=== PATIENT | female | born 1970 | race Caucasian/White ===

== ENCOUNTER → 2016-03-24 | Outpatient (CLI) | payer MEDICARE, MEDICAID | LOC: RAD 11:37 | PROVIDERS: ATTEND Nurse Practitioner Family | DX: S99.921A Unspecified injury of right foot, initial encounter (principal); X58.XXXA Exposure to other specified factors, initial encounter; Y93.9 Activity, unspecified; Y92.9 Unspecified place or not applicable ==

== ENCOUNTER → 2016-04-04 | Outpatient (CLI) | payer MEDICARE, MEDICAID ==
--- NOTE | 2016-04-04 15:52 | ST Modified Barium Swallow ---
Recommendation - Recommendations Recommendations: 1) DIET: recommend continue current diet. No straws, limit large sequential swallows from cup. 2) Aspiration precautions; due to aspiration of thin with sequential straw sips and with large sequential cup swallows. SUMMARY: Pt presents with mild pharyngeal dysphagia characterized by aspiration of large sequential swallows of thin by straw and cup. No penetration or aspiration observed on small sips of thin by cup. No residuals observed in pharyngeal cavity on any consistency. Pt educated on no straws and limiting large sequential swallows of thin. Medical Diagnoses - Medical Diagnoses Medical Diagnosis Description & ICD-10 Code(s): dysphagia, tardive dyskinesia Other Medical Diagnoses/Co-Morbidities: tardive dyskinesia, reflux, depression, schizoaffective disorder - ICD-10 Tx Diagnosis Coding (1) Dysphagia, pharyngeal phase ICD-10 Code(s): R13.13 - DYSPHAGIA, PHARYNGEAL PHASE ST Modified Barium Swallow - General Date: 04/04/16 Referring Physician: Faye Morel NP Risks/Precautions: None Date of Onset: 04/01/15 Reason for Referral: dysphagia - History History obtained from: Patient -: Medical - Pt reports she "forgets how to swallow" and she only eats soft foods due to dentures. Pt reports globus sensation in upper neck. Pt states moments of difficulty swallowing come and go and at times of difficulty swallowing she endorses "bad reflux." Pt denies taking any reflux medications. Pt reports when swallowing is difficult she will have coughing and choking on solids and liquids. Pt denies history of PNA or bronchitis. PMHx:tardive dyskinesia, reflux, depression, schizoaffective disorder, spontaneous pneumothorax with lung surgery. Medications: trileptal, pt unable to recall any other medications. Allergies: haloperidol, benztropine, codeine, symbalta, zyprexa - Functional Status Prior Functional Status: INDEPENDENT: feeding Current Functional Limitations: feeding - Subjective Patient/caregiver goal(s): safe swallow, r/o aspiration Cognitive-Linguistic Function: Functional Speech Intelligibility: WNL Current Nutritional Means: PO Current PO diet: Soft - due to dentures Current symptoms: Coughing, c/o Globus sensation - upper neck Pain: 1/5 - constipation - Objective Assessment: Upright, Left Lateral - Food Trials Used Food trials used: Thin liquids, Pureed, Soft solids The patient: Was Able to Self Feed - Oral-Motor Skills Dentition: Dentures-Upper, Dentures-Lower Velo-pharyngeal function: Unremarkable Laryngeal Function: Volitional Cough, Volitional Swallow - Assessment Oral prep: Normal Labial closure: Adequate Leakage: None Mastication: Adequate Lingual Movement: Normal Oral stage: Normal for this Procedure - Pharyngeal Stage Initiation of Pharyngeal Stage Reflex: Normal Decreased laryngeal elevation: No Reduced Velopharyngeal Closure: no Reduced pressure generation: No reduced tongue-based retraction: No Pre-swallow pooling in valleculae: None Pre-Swallow pooling in pyriforms: None Reduced Thyro-Hyoid approximation: Yes - on large sequential sips by straw and cup; appropriate approximation on all other pO trials Reduced epiglottic excursion: No Reduced pharyngeal peristalsis/contraction: No Post-swallow residulas vallecular: None Post-Swallow residuals in pyriforms: None - Fall Risk Assessment Medications/Conditions that increase fall risks include: Antidepressants, sedatives, anti-arrhythmic, diuretic, benzodiazipenes, neuroleptics. BP regulation problems, cardiac problems, balance or gait deficits, neurological problems. Is patient considered at risk for falls: no Fall Risk Actions Taken: No action needed - Behavioral Observations During evaluation process patient: was pleasant, was cooperative, able to answer questions, provided medical history - Treatment / Educational Needs: Treatment/Education Needs: Treatment consisted of patient education on the role of the Speech Pathologist. Patient's plan of care and golas were communicated as well as scheduling and attendance policies. Recommendations for initial home program were shared. Patient demonstrated understanding and verbalized agreement. Initial home program recommendations: pt provided with verbal and written education on aspiration PNA and recommendations from study. - Impression/Summary Tracheal Aspiration: yes - on large sequential sips of thin by straw and cup, during swallow Patient presents with: Pharyngeal stage dysph. - mild Risk of Aspiration: Mild - Recommendations NPO: no Solid diet recommendations: Mechanical Soft Liquid Diet Modification: Thin Strict aspiration precautions: Yes Pt/Family education and followup with MD: Yes Dysphagia therapy with PATHOLOGY LABORATORY AIDE: no Recommended techniques: Fully Upright During Meal, Small Bites and Sips Supervision: Independent Information, Precautions and Recommendations: Patient (Written), Patient (Verbal ) - Time Total Time: 25 - Plan of Care Strategies to optimize patient understanding include:: ongoing assessment of educational needs, implementation of educational strategies, and re-education. - - -: Thank you for the opportunity to work with this patient and his/her family. Should you have any questions about this patient's plan or progress, I can be reached at [phone]. Charge G Code? - - -: Yes ST Reyes Impairment Category - Rationale Based On Rationale Based On: Clin Find., Obj Measures - Swallowing Current G8996: CJ 20-39% Impaired Goal G8997: CJ 20-39% Impaired Discharge G8998: CJ 20-39% Impaired
== END ==
LOC: RAD 08:11
PROVIDERS: ATTEND Nurse Practitioner Family
DX: R13.13 Dysphagia, pharyngeal phase (principal); K21.9 Gastro-esophageal reflux disease without esophagitis; G24.01 Drug induced subacute dyskinesia
CPT/HCPCS: 74230; 92611; G8996; G8997; G8998

== ENCOUNTER 2016-06-16 20:20 | Emergency (ER) | payer MEDICARE, MEDICAID ==
--- NOTE | 2016-06-16 20:47 | ER Document Report ---
ED General - General Stated Complaint: ALTERED MENTAL STATUS Cannot obtain history due to: Intoxicated, Altered mental status Notes: Patient is a 45-year-old female who presents by EMS after taking 25 mg of clonazepam in a suicide attempt. She denies any coingestions. No additional history is able to be provided as patient is somnolent and intoxicated on benzodiazepines. She apparently has a history of the same in the past. TRAVEL OUTSIDE OF THE [place] IN LAST 30 DAYS: No - Related Data Allergies/Adverse Reactions: haloperidol [From Haldol] Allergy (Severe, Verified 01/10/16 07:35) Anaphylaxis haloperidol lactate [From Haldol] Allergy (Severe, Verified 01/10/16 07:35) Anaphylaxis benztropine [From Cogentin] Allergy (Unknown, Verified 01/10/16 07:35) codeine [Codeine] Adverse Reaction (Intermediate, Verified 01/10/16 07:35) DIZZY, PASSES OUT, GETS NAUSEATED duloxetine HCl [From Cymbalta] Adverse Reaction (Intermediate, Verified 07:35) URINE RETENTION olanzapine [From Zyprexa] Adverse Reaction (Mild, Verified 01/10/16 07:35) INCREASED HEARTRATE Past Medical History - General Information source: Law Enforcement Cannot obtain history due to: Intoxicated, Altered mental status - Social History Smoking Status: Unknown if Ever Smoked Family History: Reviewed & Not Pertinent - Past Medical History Cardiac Medical History: Reports: Hx Hypertension Denies: Hx Coronary Artery Disease, Hx Heart Attack Pulmonary Medical History: Denies: Hx Asthma, Hx Bronchitis, Hx COPD, Hx Pneumonia Neurological Medical History: Reports: Hx Seizures - last one 7 yrs ago due to meds. Denies: Hx Cerebrovascular Accident GI Medical History: Denies: Hx Hepatitis, Hx Hiatal Hernia, Hx Ulcer Musculoskeltal Medical History: Denies Hx Arthritis Psychiatric Medical History: Reports: Hx Anxiety, Hx Depression, Hx Schizoaffective Disorder Infectious Medical History: Denies: Hx Hepatitis Past Surgical History: Reports: Hx Gynecologic Surgery, Hx Orthopedic Surgery. Denies: Hx Hysterectomy, Hx Mastectomy, Hx Open Heart Surgery, Hx Pacemaker - Immunizations Immunizations up to date: Yes Hx Diphtheria, Pertussis, Tetanus Vaccination: Yes Review of Systems - Review of Systems -: Yes ROS unobtainable due to patient's medical condition Physical Exam - Vital signs Vitals: Temp Pulse Resp BP Pulse Ox 98.0 F 62 14 104/71 100 06/16/16 20:30 06/16/16 20:30 06/16/16 20:30 06/16/16 20:30 06/16/16 20:30 Interpretation: Normal Notes: PHYSICAL EXAMINATION: GENERAL: Somewhat somnolent but does awake to loud voice HEAD: Atraumatic, normocephalic. EYES: Pupils equal round and reactive to light, extraocular movements intact, sclera anicteric, conjunctiva are normal. ENT: nares patent, oropharynx clear without exudates. Moderately dry mucous membranes. NECK: Normal range of motion, supple without lymphadenopathy LUNGS: Breath sounds clear to auscultation bilaterally and equal. No wheezes rales or rhonchi. HEART: Regular rate and rhythm without murmurs ABDOMEN: Soft, nontender, normoactive bowel sounds. No guarding, no rebound. No masses appreciated. EXTREMITIES: Normal range of motion, no pitting or edema. No cyanosis. NEUROLOGICAL: No focal neurological deficits. Moves all extremities spontaneously and on command. PSYCH: Somnolent SKIN: Warm, Dry, normal turgor, no rashes or lesions noted. Course - Re-evaluation Re-evalutation: 06/16/16 20:46 Patient presents after ingesting a total of 25 mg of clonazepam per her report prior to arrival in a suicide attempt. She arrives somewhat somnolent but her respiratory rate and remaining vitals are otherwise within normal limits. No additional physical finding exams other than somnolence although she does wake up and answer questions after vigorous physical stimulation and she will be observed on school lunch monitor, psychiatric screening laboratories will be sent and she was placed on IVC. 06/17/16 03:46 Agent has had improving mental status or her duration here in the emergency room. She has not had any apnea or respiratory depression. Screening laboratories are unremarkable. EKG normal. She is medically clear at this time for evaluation by psychiatry in the morning. - Vital Signs Vital signs: Temp Pulse Resp BP Pulse Ox 98.0 F 62 14 104/71 100 06/16/16 20:30 06/16/16 20:30 06/16/16 20:30 06/16/16 20:30 06/16/16 20:30 - Laboratory Result Diagrams: 06/16/16 20:30 06/16/16 20:30 Laboratory results interpreted by me: 06/16/16 06/17/16 20:30 00:31 AST 40 H ALT 96 H Urine Ketones TRACE H Salicylates < 1.0 L Acetaminophen < 10 L - EKG Interpretation by Me Additional EKG results interpreted by me: 06/17/16 03:46 Normal sinus rhythm. Rate 74. No ST elevations or depressions. QTC is 440 Discharge - Discharge Clinical Impression: Suicide attempt Benzodiazepine overdose Qualifiers: Encounter type: initial encounter Injury intent: intentional self-harm Qualified Code(s): T42.4X2A - Poisoning by benzodiazepines, intentional self- harm, initial encounter Condition: Fair Disposition: PSYCH HOSP/UNIT
[2016-06-16 21:54] LABS: ABSOLUTE EOSINOPHILS # (AUTO) 0.1 10^3/uL (0.0-0.6); ABSOLUTE LYMPHOCYTES (AUTO) 2.3 10^3/uL (0.5-4.7); ABSOLUTE MONOCYTES (AUTO) 0.6 10^3/uL (0.1-1.4); ABSOLUTE NEUT (AUTO) 7.2 10^3/uL (1.7-8.2); BASOPHILS % (AUTO) 0.2 % (0-2); EOSINOPHILS % (AUTO) 0.8 % (0-6); HEMATOCRIT 39.6 % (36.0-47.0); HEMOGLOBIN 13.4 g/dL (12.0-15.5); HGB HCT DIFFERENCE 0.6; MEAN CORPUSCULAR HEMOGLOBIN 29.2 pg (27.0-33.4); MEAN CORPUSCULAR HGB CONC 33.9 g/dL (32.0-36.0); MEAN CORPUSCULAR VOLUME 86 fl (80-97); MONOCYTES % (AUTO) 5.7 % (3-13); RED CELL DISTRIBUTION WIDTH 13.6 % (11.5-14.0); SEGMENTED NEUTROPHILS % (AUTO) 70.3 % (42-78); WHITE BLOOD COUNT 10.2 10^3/uL (4.0-10.5)
[2016-06-16 22:23] LABS: ALANINE AMINOTRANSFERASE 96 U/L (9-52); ALBUMIN 4.3 g/dL (3.5-5.0); ALKALINE PHOSPHATASE 80 U/L (38-126); ANION GAP 12 (5-19); ASPARTATE AMINO TRANSFERASE 40 U/L (14-36); BILIRUBIN,DIRECT 0.3 mg/dL (0.0-0.4); BILIRUBIN,TOTAL 0.7 mg/dL (0.2-1.3); BLOOD UREA NITROGEN 8 mg/dL (7-20); CARBON DIOXIDE 27 mmol/L (22-30); CHLORIDE 104 mmol/L (98-107); CREATININE RESULT 0.75 mg/dL (0.52-1.25); GLUCOSE 101 mg/dL (75-110); POTASSIUM 4.6 mmol/L (3.6-5.0); SODIUM 142.7 mmol/L (137-145); TOTAL PROTEIN 7.4 g/dL (6.3-8.2)
[2016-06-16 22:24] LABS: ALCOHOL < 10 mg/dL (NONE DETECTED)
[2016-06-17 00:51] LABS: APPEARANCE,URINE SLIGHTLY-CLOUDY; BILIRUBIN,URINE NEGATIVE (NEGATIVE); GLUCOSE, URINE NEGATIVE (NEGATIVE); KETONES,URINE TRACE mg/dL (NEGATIVE); LEUKOCYTE ESTERASE,URINE NEGATIVE (NEGATIVE); NITRITE,URINE NEGATIVE (NEGATIVE); PROTEIN,URINE NEGATIVE (NEGATIVE); URINE SPECIFIC GRAVITY 1.005; UROBILINOGEN,URINE NEGATIVE mg/dL (<2.0)
[2016-06-17 01:04] LABS: URINE BARBITURATES SCREEN NEGATIVE; URINE METHADONE SCREEN NEGATIVE; URINE OPIATES LOW NEGATIVE; URINE PHENCYCLIDINE SCREEN NEGATIVE
--- NOTE | 2016-06-17 06:08 | EKG REPORT ---
SEVERITY:- BORDERLINE ECG - SINUS RHYTHM LVH BY VOLTAGE : Confirmed by: Sea Velez 17-Jun-2016 06:07:39
--- NOTE | 2016-06-17 09:19 | ER Document Report ---
Doctor's Note Notes: 06/17/16 09:18 Patient's ER notes were reviewed. Nursing staff states no overnight events. Patient is currently resting currently. Lab work and vital signs have been reviewed. Patient stable for disposition
--- NOTE | 2016-06-17 17:35 | PSYCHOLOGICAL NOTE ---
Psych Note - Psych Note Psych Note: Patient presented to [facility] ED by EMS after taking 25 mg of clonazepam in a suicide attempt. She denies any coingestions. No additional history is able to be provided as patient is somnolent and intoxicated on benzodiazepines. She apparently has a history of the same in the past. Patient states that she took a bottle of Klonopin. She disclosed that she has been for 22 years however has recently started having feelings for someone else. Yesterday she told that person about her feelings and "while they were nice about it they pretty much said no way." Patient disclosed that she has a diagnosis of it so effective disorder. She received services through [facility]. She continued disclosed that she has been inpatient "too many times remember." Last time occurring in February to [facility]. When asked if the patient still has suicidal ideation patient responds "I don't know how to cope. " Patient confirms she receives medication management and therapeutic services but states she has never been taught coping skills. Patient again was asked if she still has suicidal thoughts patient stated "I don't know, I wanted to but knew I wasn't taking enough to do." Patient is semi-alert and orientated to person place time and circumstance. Mood is dysphoric with flat affect. Clinician notes patient is demonstrating delayed psychomotor and responses in conversational speech. Patient endorses suicidal ideation, denies homicidal ideation. Patient denies any current auditory or visual hallucinations however states she's had been in the past; no delusions are noted. Thought process is currently affected resulting in noticeable delay in responses however is organized and linear. Conversational speech is low in delayed. Eye contact was poor. Intellectual abilities appear to be within average range. Attention and concentration are fair. Insight, judgment, impulse control are poor. 295.70 (F25.0) Schizoaffective disorder per history provided by patient Impression\\plan:Patient is considered psychiatrically cleared for discharge. Patient endorses suicidal attempt however there are no medical evidence to back this claim. Patient has an established mental health provider through [facility]. Patient has an appointment on the for therapeutic services and on the for a medication check. Patient is recommended to follow through with these appointments. Patient does not meet IVC criteria per [place] GS 122C. Dr. Kinney was consulted on a care management of this patient attending physician is in agreement with recommendations and disposition.
--- NOTE | 2016-06-17 17:41 | ER Document Report ---
ED Psych Disorder / Suicide - General TRAVEL OUTSIDE OF THE [place] IN LAST 30 DAYS: No <KAYLIE ACOSTA - Last Filed: 06/17/16 17:35> <MARKY GALAN - Last Filed: 06/17/16 18:36> - General Chief Complaint: Possible Overdose Stated Complaint: ALTERED MENTAL STATUS - [facility] Notes: Patient is considered psychiatrically cleared for discharge. Patient endorses suicidal attempt however there are no medical evidence to back this claim. Patient has an established mental health provider through [facility]. Patient has an appointment on the for therapeutic services and on the for a medication check. Patient is recommended to follow through with these appointments. Patient does not meet IVC criteria per [facility] 122C. Dr. Kinney was consulted on a care management of this patient attending physician is in agreement with recommendations and disposition. (KAYLIE ACOSTA) - Related Data Allergies/Adverse Reactions: haloperidol [From Haldol] Allergy (Severe, Verified 01/10/16 07:35) Anaphylaxis haloperidol lactate [From Haldol] Allergy (Severe, Verified 01/10/16 07:35) Anaphylaxis benztropine [From Cogentin] Allergy (Unknown, Verified 01/10/16 07:35) codeine [Codeine] Adverse Reaction (Intermediate, Verified 01/10/16 07:35) DIZZY, PASSES OUT, GETS NAUSEATED duloxetine HCl [From Cymbalta] Adverse Reaction (Intermediate, Verified 07:35) URINE RETENTION olanzapine [From Zyprexa] Adverse Reaction (Mild, Verified 01/10/16 07:35) INCREASED HEARTRATE Home Medications: Current Home Medications Atenolol [Tenormin] 25 mg PO BID 06/17/16 [History] Clonazepam [Klonopin] 0.5 mg PO BID 06/17/16 [History] Clonazepam [Klonopin] 1 mg PO QHS 06/17/16 [History] Dextroamphetamine/Amphetamine [Adderall 30 mg Tablet] 30 mg PO BID 06/17/16 [ History] Fluoxetine HCl [Prozac 20 mg Capsule] 20 mg PO QAM 06/17/16 [History] Hydroxyzine Pamoate [Vistaril 25 mg Capsule] 25 mg PO QHS 06/17/16 [History] Iloperidone [Fanapt] 4 mg PO DAILY 06/17/16 [History] Naproxen 500 mg PO Q12 06/17/16 [History] Oxcarbazepine [Trileptal] 600 mg PO BID 06/17/16 [History] Ramipril [Altace 2.5 mg Capsule] 2.5 mg PO DAILY 06/17/16 [History] Past Medical History - General Information source: Law Enforcement - Social History Smoking Status: Unknown if Ever Smoked Frequency of alcohol use: None Drug Abuse: None Family History: Reviewed & Not Pertinent - Past Medical History Cardiac Medical History: Reports: Hx Hypertension Denies: Hx Coronary Artery Disease, Hx Heart Attack Pulmonary Medical History: Denies: Hx Asthma, Hx Bronchitis, Hx COPD, Hx Pneumonia Neurological Medical History: Reports: Hx Seizures - last one 7 yrs ago due to meds. Denies: Hx Cerebrovascular Accident GI Medical History: Denies: Hx Hepatitis, Hx Hiatal Hernia, Hx Ulcer Musculoskeltal Medical History: Denies Hx Arthritis Psychiatric Medical History: Reports: Hx Anxiety, Hx Depression, Hx Schizoaffective Disorder Infectious Medical History: Denies: Hx Hepatitis Past Surgical History: Reports: Hx Gynecologic Surgery, Hx Orthopedic Surgery. Denies: Hx Hysterectomy, Hx Mastectomy, Hx Open Heart Surgery, Hx Pacemaker - Immunizations Immunizations up to date: Yes Hx Diphtheria, Pertussis, Tetanus Vaccination: Yes <KAYLIE ACOSTA - Last Filed: 06/17/16 17:35> Course - Laboratory Result Diagrams: 06/16/16 20:30 06/16/16 20:30 <KAYLIE ACOSTA - Last Filed: 06/17/16 17:35> - Laboratory Result Diagrams: 06/16/16 20:30 06/16/16 20:30 <MARKY GALAN - Last Filed: 06/17/16 18:36> - Re-evaluation Re-evalutation: 06/17/16 18:36 Agree with assessment and plan of ourr mental health team. Patient can be discharged home. (MARKY GALAN) - Vital Signs Vital signs: Temp Pulse Resp BP Pulse Ox 97.8 F 60 16 117/75 95 06/17/16 15:18 06/17/16 15:18 06/17/16 15:18 06/17/16 15:18 06/17/16 15:18 - Laboratory Laboratory results interpreted by me: 06/16/16 06/17/16 20:30 00:31 AST 40 H ALT 96 H Urine Ketones TRACE H Salicylates < 1.0 L Acetaminophen < 10 L Discharge <KAYLIE ACOSTA - Last Filed: 06/17/16 17:35> <MARKY GALAN - Last Filed: 06/17/16 18:36> - Discharge Clinical Impression: Benzodiazepine overdose Qualifiers: Encounter type: initial encounter Injury intent: intentional self-harm Qualified Code(s): T42.4X2A - Poisoning by benzodiazepines, intentional self- harm, initial encounter Suicide gesture Qualifiers: Encounter type: subsequent encounter Qualified Code(s): X83.8XXD - Intentional self-harm by other specified means, subsequent encounter Condition: Good Disposition: HOME, SELF-CARE Additional Instructions: DEPRESSION: Your evaluation reveals that you have mental depression. While symptoms may be vague, they often include disturbance of sleep, fatigue, loss of appetite , and general loss of interest in life. While depression may be a side effect of drugs, or a reaction to a major change in your life, many cases have no known cause. If depression is acute, and related to a major loss in your life, you can expect it to clear completely with time. If you have been depressed a long time , are prone to repeated bouts of depression or low mood, or have been thinking of suicide, get help. Depression can be treated with anti-depressant medication and counselling. Long-term depression will often take a few weeks to clear, even with appropriate medication. Follow-up care is important. SUICIDAL IDEATION: Suicidal ideation is a common medical term for thoughts about suicide, which may be as detailed as a formulated plan, without the suicidal act itself. Although most people who undergo suicidal ideation do not commit suicide, some go on to make suicide attempts. The range of suicidal ideation varies greatly from fleeting to detailed planning, role playing, and unsuccessful attempts. While thoughts about suicide are common, most people do not carry out serious actions to commit suicide. Based upon your evaluation and discussion with you, we do not believe you are currently at risk to act upon your thoughts of suicide. You have agreed to return to the Emergency Department, at any time , if you feel inclined to act upon your suicidal thoughts. FOLLOW-UP CARE: Patient has an established mental health provider through [facility]. Patient has an appointment on the for therapeutic services and on the for a medication check. Patient is recommended to follow through with these appointments. If you experience worsening or a significant change in your symptoms, notify the physician immediately or return to the Emergency Department at any time for re-evaluation. Referrals: DINESH MENESES MD [Primary Care Provider] - Follow up as needed Danny Gupta [Outside] - Follow up as needed
[2016-06-17 18:50] VITALS: BP 105/58
== END 2016-06-17 19:10 | disposition home or self-care (01) ==
LOC: ER 20:20
DX: T42.4X2A Poisoning by benzodiazepines, intentional self-harm, initial encounter (principal); R41.82 Altered mental status, unspecified; F25.0 Schizoaffective disorder, bipolar type; I10 Essential (primary) hypertension; Z88.6 Allergy status to analgesic agent
CPT/HCPCS: 36415; 80053; 80307; 81001; 85025; 93005; 93010; 99285

== ENCOUNTER 2016-06-17 23:09 | Emergency (ER) | payer MEDICARE, MEDICAID ==
[2016-06-17 23:35] LABS: ABSOLUTE EOSINOPHILS # (AUTO) 0.1 10^3/uL (0.0-0.6); ABSOLUTE LYMPHOCYTES (AUTO) 2.7 10^3/uL (0.5-4.7); ABSOLUTE MONOCYTES (AUTO) 0.6 10^3/uL (0.1-1.4); ABSOLUTE NEUT (AUTO) 7.3 10^3/uL (1.7-8.2); BASOPHILS % (AUTO) 0.1 % (0-2); EOSINOPHILS % (AUTO) 1.3 % (0-6); HEMATOCRIT 40.7 % (36.0-47.0); HEMOGLOBIN 13.8 g/dL (12.0-15.5); HGB HCT DIFFERENCE 0.7; LYMPHOCYTES % (AUTO) 25.2 % (13-45); MEAN CORPUSCULAR HEMOGLOBIN 29.1 pg (27.0-33.4); MEAN CORPUSCULAR HGB CONC 33.9 g/dL (32.0-36.0); MEAN CORPUSCULAR VOLUME 86 fl (80-97); MONOCYTES % (AUTO) 5.8 % (3-13); RED BLOOD COUNT 4.75 10^6/uL (3.72-5.28); RED CELL DISTRIBUTION WIDTH 13.4 % (11.5-14.0); SEGMENTED NEUTROPHILS % (AUTO) 67.6 % (42-78); WHITE BLOOD COUNT 10.8 10^3/uL (4.0-10.5)
[2016-06-17 23:50] LABS: ALANINE AMINOTRANSFERASE 87 U/L (9-52); ALBUMIN 4.3 g/dL (3.5-5.0); ALKALINE PHOSPHATASE 89 U/L (38-126); ANION GAP 11 (5-19); ASPARTATE AMINO TRANSFERASE 37 U/L (14-36); BILIRUBIN,DIRECT 0.3 mg/dL (0.0-0.4); BILIRUBIN,TOTAL 0.6 mg/dL (0.2-1.3); BLOOD UREA NITROGEN 14 mg/dL (7-20); CALCIUM 9.8 mg/dL (8.4-10.2); CARBON DIOXIDE 26 mmol/L (22-30); CHLORIDE 106 mmol/L (98-107); CREATININE RESULT 0.81 mg/dL (0.52-1.25); GLUCOSE 89 mg/dL (75-110); POTASSIUM 4.5 mmol/L (3.6-5.0); SODIUM 143.4 mmol/L (137-145); TOTAL PROTEIN 7.3 g/dL (6.3-8.2)
[2016-06-17 23:55] LABS: ALCOHOL < 10 mg/dL (NONE DETECTED)
--- NOTE | 2016-06-18 02:23 | ER Document Report ---
ED General - General Chief Complaint: Psych Problem Stated Complaint: POSSIBLE OVERDOSE Cannot obtain history due to: Altered mental status Notes: Patient is a 45-year-old female who again presents today with family concerns that she was not safe for discharge earlier today. Patient is not able to provide meaningful history as she continues to be somewhat somnolent. states she's been watching her since she was taken back home and she has not had any additional ingestions. He states that she had sent him very explicit test messages stating her intention to and that she was not successful with her initial overdose she would repeat that attempt. He states that he has never seen her to this degree and does not feel she should've been discharged home. History is otherwise limited secondary to patient's somnolence. TRAVEL OUTSIDE OF THE [place] IN LAST 30 DAYS: No - Related Data Allergies/Adverse Reactions: haloperidol [From Haldol] Allergy (Severe, Verified 01/10/16 07:35) Anaphylaxis haloperidol lactate [From Haldol] Allergy (Severe, Verified 01/10/16 07:35) Anaphylaxis benztropine [From Cogentin] Allergy (Unknown, Verified 01/10/16 07:35) codeine [Codeine] Adverse Reaction (Intermediate, Verified 01/10/16 07:35) DIZZY, PASSES OUT, GETS NAUSEATED duloxetine HCl [From Cymbalta] Adverse Reaction (Intermediate, Verified 07:35) URINE RETENTION olanzapine [From Zyprexa] Adverse Reaction (Mild, Verified 01/10/16 07:35) INCREASED HEARTRATE Past Medical History - General Information source: Relative - Social History Smoking Status: Current Every Day Smoker Chew tobacco use (# tins/day): No Frequency of alcohol use: None Drug Abuse: None Lives with: Spouse/Significant other Family History: Reviewed & Not Pertinent Patient has suicidal ideation: No Patient has homicidal ideation: No - Past Medical History Cardiac Medical History: Reports: Hx Hypertension Denies: Hx Coronary Artery Disease, Hx Heart Attack Pulmonary Medical History: Denies: Hx Asthma, Hx Bronchitis, Hx COPD, Hx Pneumonia Neurological Medical History: Reports: Hx Seizures - last one 7 yrs ago due to meds. Denies: Hx Cerebrovascular Accident Renal/ Medical History: Denies: Hx Peritoneal Dialysis GI Medical History: Denies: Hx Hepatitis, Hx Hiatal Hernia, Hx Ulcer Musculoskeltal Medical History: Denies Hx Arthritis Psychiatric Medical History: Reports: Hx Anxiety, Hx Bipolar Disorder, Hx Depression, Hx Schizoaffective Disorder, Hx Schizophrenia - schizoeffective d/o Infectious Medical History: Denies: Hx Hepatitis Past Surgical History: Reports: Hx Cholecystectomy, Hx Gynecologic Surgery, Hx Oral Surgery - all teeth, Hx Orthopedic Surgery - rt thumb, Hx Tubal Ligation. Denies: Hx Hysterectomy, Hx Mastectomy, Hx Open Heart Surgery, Hx Pacemaker - Immunizations Immunizations up to date: Yes Hx Diphtheria, Pertussis, Tetanus Vaccination: Yes Review of Systems - Review of Systems -: Yes ROS unobtainable due to patient's medical condition Physical Exam - Vital signs Vitals: Temp Pulse Resp BP Pulse Ox 97.6 F 84 18 119/73 99 06/17/16 23:16 06/17/16 23:16 06/17/16 23:16 06/17/16 23:16 06/17/16 23:16 Interpretation: Normal Notes: PHYSICAL EXAMINATION: GENERAL: Somewhat somnolent but in no acute distress HEAD: Atraumatic, normocephalic. EYES: Pupils equal round and reactive to light, extraocular movements intact, sclera anicteric, conjunctiva are normal. ENT: nares patent, oropharynx clear without exudates. Moderately dry mucous membranes. NECK: Normal range of motion, supple without lymphadenopathy LUNGS: Breath sounds clear to auscultation bilaterally and equal. No wheezes rales or rhonchi. HEART: Regular rate and rhythm without murmurs ABDOMEN: Soft, nontender, normoactive bowel sounds. No guarding, no rebound. No masses appreciated. EXTREMITIES: Normal range of motion, no pitting or edema. No cyanosis. NEUROLOGICAL: No focal neurological deficits. Moves all extremities spontaneously and on command. PSYCH: Flat affect, somnolent. Denying SI at this time SKIN: Warm, Dry, normal turgor, no rashes or lesions noted. Course - Re-evaluation Re-evalutation: 06/18/16 02:20 Patient was discharged earlier today after getting that her overdose history was with a suicidal intention. Am concerned the patient was discharged given that she admitted that her overdose was intentional and with the intent of killing herself although per the psychiatry note she did note that she suspected this was not an adequate dose to actually achieve suicide. at the bedside states the patient was mostly somnolent when he picked her up and has continued to be that way since taking her home. States she has only drank about a half a glass of water and has otherwise been sleeping. States he was never contacted regarding his concerns for this patient. He notes that she sent to multiple text messages explicitly stating that she was going to kill herself using an overdose, that nobody cared about her, and that if she didn't succeed this time "I will be damn sure to succeed next time". He states he does not feel that she was ever safe for her to be discharged home and does not feel comfortable having her back at home at this time as he feels that she is still very high risk for suicide. Patient at this time remains so somnolent that she does not have capacity. She will be placed back on the IVC given my continued elevated concern for her suicide attempt yesterday. Repeat labs today are unchanged. She will be continued on shelter monitor given her ongoing somnolence and can be evaluated again by psychiatry in the morning. I would request psychiatry speak at length with the as he clearly has additional information that was not obtained on their first assessment. - Vital Signs Vital signs: Temp Pulse Resp BP Pulse Ox 97.6 F 84 12 120/73 97 06/17/16 23:16 06/17/16 23:16 06/18/16 01:28 06/18/16 01:28 06/18/16 01:28 - Laboratory Result Diagrams: 06/17/16 23:25 06/17/16 23:25 Laboratory results interpreted by me: 06/17/16 06/17/16 23:25 23:25 WBC 10.8 H AST 37 H ALT 87 H Salicylates < 1.0 L Acetaminophen < 10 L Discharge - Discharge Clinical Impression: Attempted suicide Benzodiazepine overdose Qualifiers: Encounter type: initial encounter Injury intent: intentional self-harm Qualified Code(s): T42.4X2A - Poisoning by benzodiazepines, intentional self- harm, initial encounter Condition: Fair Disposition: PSYCH HOSP/UNIT
[2016-06-18 03:45] LABS: APPEARANCE,URINE SLIGHTLY-CLOUDY; BILIRUBIN,URINE NEGATIVE (NEGATIVE); GLUCOSE, URINE NEGATIVE (NEGATIVE); KETONES,URINE 20 mg/dL (NEGATIVE); LEUKOCYTE ESTERASE,URINE NEGATIVE (NEGATIVE); NITRITE,URINE NEGATIVE (NEGATIVE); PROTEIN,URINE NEGATIVE (NEGATIVE); URINE SPECIFIC GRAVITY 1.018; UROBILINOGEN,URINE NEGATIVE mg/dL (<2.0)
[2016-06-18 04:02] LABS: URINE BARBITURATES SCREEN NEGATIVE; URINE METHADONE SCREEN NEGATIVE; URINE OPIATES LOW NEGATIVE; URINE PHENCYCLIDINE SCREEN NEGATIVE
--- NOTE | 2016-06-18 08:37 | EKG REPORT ---
SEVERITY:- NORMAL ECG - SINUS RHYTHM : Confirmed by: Sea Velez 18-Jun-2016 08:36:28
--- NOTE | 2016-06-18 09:30 | ER Document Report ---
Doctor's Note Notes: 06/18/16 09:30 Lab work vital signs have been reviewed. At this time patient is currently stable with no overnight events requiring no intervention at this time. Patient stable for transfer or other disposition
--- NOTE | 2016-06-18 09:51 | PSYCHOLOGICAL NOTE ---
Psych Note - Psych Note Psych Note: Ann [facility] Admissions, Phoebe states, "I can't say she has not been here." [phone] (F25.0) Schizoaffective disorder per history provided by patient
--- NOTE | 2016-06-18 10:28 | ER Document Report ---
ED Psych Disorder / Suicide - General Chief Complaint: Psych Problem Stated Complaint: POSSIBLE OVERDOSE Information source: Patient, Relative, [facility] Records TRAVEL OUTSIDE OF THE [place] IN LAST 30 DAYS: No - HPI Patient complains to provider of: Overdose - accidental overdose, Other Onset: Just prior to arrival Onset was: Sudden Suicide Risk Factors: Bipolar, Depressed, Other - social/relational stressors Situational problems related to: Spouse - discord with estranged Normal mood: Yes Associated symptoms: Normal affect, Normal mood, Anxious - per report Similar symptoms previously: No Recently seen / treated by doctor: Yes - [facility], Dr Erik SMITH Notes: Patient denies her overdose was an attempt at suicide. - Related Data Allergies/Adverse Reactions: haloperidol [From Haldol] Allergy (Severe, Verified 01/10/16 07:35) Anaphylaxis haloperidol lactate [From Haldol] Allergy (Severe, Verified 01/10/16 07:35) Anaphylaxis benztropine [From Cogentin] Allergy (Unknown, Verified 01/10/16 07:35) codeine [Codeine] Adverse Reaction (Intermediate, Verified 01/10/16 07:35) DIZZY, PASSES OUT, GETS NAUSEATED duloxetine HCl [From Cymbalta] Adverse Reaction (Intermediate, Verified 07:35) URINE RETENTION olanzapine [From Zyprexa] Adverse Reaction (Mild, Verified 01/10/16 07:35) INCREASED HEARTRATE Past Medical History - General Information source: Patient, Relative, [facility] Records - Social History Smoking Status: Current Every Day Smoker Chew tobacco use (# tins/day): No Frequency of alcohol use: None Drug Abuse: None Lives with: Spouse/Significant other Family History: Reviewed & Not Pertinent Patient has suicidal ideation: No Patient has homicidal ideation: No - Past Medical History Cardiac Medical History: Reports: Hx Hypertension Denies: Hx Coronary Artery Disease, Hx Heart Attack Pulmonary Medical History: Denies: Hx Asthma, Hx Bronchitis, Hx COPD, Hx Pneumonia Neurological Medical History: Reports: Hx Seizures - last one 7 yrs ago due to meds. Denies: Hx Cerebrovascular Accident Renal/ Medical History: Denies: Hx Peritoneal Dialysis GI Medical History: Denies: Hx Hepatitis, Hx Hiatal Hernia, Hx Ulcer Musculoskeltal Medical History: Denies Hx Arthritis Psychiatric Medical History: Reports: Hx Anxiety, Hx Bipolar Disorder, Hx Depression, Hx Schizoaffective Disorder, Hx Schizophrenia - schizoeffective d/o Infectious Medical History: Denies: Hx Hepatitis Past Surgical History: Reports: Hx Cholecystectomy, Hx Gynecologic Surgery, Hx Oral Surgery - all teeth, Hx Orthopedic Surgery - rt thumb, Hx Tubal Ligation. Denies: Hx Hysterectomy, Hx Mastectomy, Hx Open Heart Surgery, Hx Pacemaker - Immunizations Immunizations up to date: Yes Hx Diphtheria, Pertussis, Tetanus Vaccination: Yes Physical Exam - Vital signs Vitals: Temp Pulse Resp BP Pulse Ox 97.6 F 84 18 119/73 99 06/17/16 23:16 06/17/16 23:16 06/17/16 23:16 06/17/16 23:16 06/17/16 23:16 Course - Vital Signs Vital signs: Temp Pulse Resp BP Pulse Ox 97.6 F 84 16 114/68 95 06/17/16 23:16 06/17/16 23:16 06/18/16 10:01 06/18/16 10:00 06/18/16 10:01 - Laboratory Result Diagrams: 06/17/16 23:25 06/17/16 23:25 Laboratory results interpreted by me: 06/17/16 06/17/16 06/18/16 23:25 23:25 03:27 WBC 10.8 H AST 37 H ALT 87 H Urine Ketones 20 H Salicylates < 1.0 L Acetaminophen < 10 L Discharge - Discharge Clinical Impression: Mild depressed bipolar I disorder Suicide gesture Qualifiers: Encounter type: subsequent encounter Qualified Code(s): X83.8XXD - Intentional self-harm by other specified means, subsequent encounter Condition: Good Disposition: HOME, SELF-CARE Instructions: Bipolar Disorder ([facility]), Instructions for Home Care Following a Drug Overdose ([facility]) Additional Instructions: Please follow up with your provider, [facility] to discuss your (self-reported) concerns over your medications. Please increase the frequency of your outpatient therapy to discuss your increased social/relational stressors. You have been provided a list of community resources, to include the phone numbers of mobile [facility]. Please return if you experience increased suicidal ideations.
--- NOTE | 2016-06-19 10:47 | ER Document Report ---
ED Psych Disorder / Suicide - General Chief Complaint: Psych Problem Stated Complaint: POSSIBLE OVERDOSE Information source: Patient, [facility] Records TRAVEL OUTSIDE OF THE [place] IN LAST 30 DAYS: No - HPI Patient complains to provider of: Overdose Onset: Just prior to arrival Onset was: Sudden Quality of pain: No pain Severity: None Pain Level: Denies Suicide Risk Factors: Bipolar, Lack of social support, Prior suicide attempt, Substance abuse Situational problems related to: Spouse Suicide Attempt Method: Overdose Overdose of: Benzodiazepine - also used adderall but only reported taking 2 Strength: .5 mg Amount: 9 pills or 4.5 mg Normal mood: No - lethargic Associated symptoms: Depressed, Psychomotor depression Similar symptoms previously: Yes Recently seen / treated by doctor: Yes Notes: Met with Patient who was initially sleeping. She reported she initially took a 1 /2 bottle of her klonipin because she and her were arguing over the fact she told her she liked someone else. She reported she also took some of her adderall but didn't have much left, despite it being filled just 2 weeks prior. Patient reported she had a prior attempt last year for basically the same reason but was admitted to [facility]. Patient reported when she was [facility] on the same day she returned, her took her immediately to [facility] to try and have her admitted. She stated she refused to get out of the car. He eventually returned and brought her [facility]. She denied taking any other medications while in the car, citing her medications were at home, however, collateral information obtained from her nurse revealed the Patient was released with her klonipin and adderall and there were 9 pills left in her klonipin bottle, When she returned for re-admit, there were no pills left. Patient reported her was likely going to"divorce me and take the kids because he is tired of me doing this." Patient denied her overdose was an actual suicide attempt, rather it was an attempt to quell the discord she was feeling in her stomach. She admitted to abusing and overusing her klonipin nad adderall and denied she has told her psychiatric provider, JENNIFER Perdomo of [facility] of the medication abuse. Patient reported she is being prescribed the adderal for Narcolepsy and the klonipin for anxiety, yet her diagnosis is schizoaffective disorder, bipolar type. Patient reported she wanted to be d/C because she had school and other things to be done on Sunday. Patient was lethargic and difficult to keep awake during the evaluation. She denied suicidal/homicidal ideation, intent, or plan. She denied psychosis and no delusions were noted. Thought processes were linear, logical, and organized. Conversational speech was reciprocal and notable for slurring. Intellectual abilities were estimated within the low average to average range. Attention and concentration was poor secondary to lethargy. Insight, judgment, and impulse control were poor and historically poor. Patient admitted to ongoing prescription medication abuse, particularly her klonipin and adderall. Her prescriber is reportedly unaware. 1. Benzodiazepine Abuse Disorder (Klonipin) 2. Amphetamine Abuse Disorder (Adderall) 3. Schizoaffective Disorder (by History) Impression / Plan: Patient to remain on IVC at this time secondary to continued lethargy and inability to remain awake. However, upon reassessment in the morning, should she be more alert and oriented, and be able to engage in conversation and walk with a normal gait, discharge with outpatient services is recommended, particularly a substance abuse evaluation. Her current provider should be advised, under continuity of care per [facility] of her abuse of the currently prescribed medications in an effort for continued education and possible alternate medication regiment can be addressed. Patient denied suicidal / homicidal ideation. She has ongoing marital stressors but has outpatient supports in place. She is encouraged to use them appropriately. Her multiple inpatient psychiatric stays have proven unsuccessful and not beneficial , thus additional services from her provider should be explored. Again, should Patient present better tomorrow she should be recommended for discharge. ED Physician in agreement with recommendation and disposition. - Related Data Allergies/Adverse Reactions: haloperidol [From Haldol] Allergy (Severe, Verified 01/10/16 07:35) Anaphylaxis haloperidol lactate [From Haldol] Allergy (Severe, Verified 01/10/16 07:35) Anaphylaxis benztropine [From Cogentin] Allergy (Unknown, Verified 01/10/16 07:35) codeine [Codeine] Adverse Reaction (Intermediate, Verified 01/10/16 07:35) DIZZY, PASSES OUT, GETS NAUSEATED duloxetine HCl [From Cymbalta] Adverse Reaction (Intermediate, Verified 07:35) URINE RETENTION olanzapine [From Zyprexa] Adverse Reaction (Mild, Verified 01/10/16 07:35) INCREASED HEARTRATE Past Medical History - General Information source: Patient, Relative, [facility], [facility] Records - Social History Smoking Status: Current Every Day Smoker Chew tobacco use (# tins/day): No Frequency of alcohol use: None Drug Abuse: None Lives with: Spouse/Significant other Family History: Reviewed & Not Pertinent Patient has suicidal ideation: No Patient has homicidal ideation: No - Past Medical History Cardiac Medical History: Reports: Hx Hypertension Denies: Hx Coronary Artery Disease, Hx Heart Attack Pulmonary Medical History: Denies: Hx Asthma, Hx Bronchitis, Hx COPD, Hx Pneumonia Neurological Medical History: Reports: Hx Seizures - last one 7 yrs ago due to meds. Denies: Hx Cerebrovascular Accident Renal/ Medical History: Denies: Hx Peritoneal Dialysis GI Medical History: Denies: Hx Hepatitis, Hx Hiatal Hernia, Hx Ulcer Musculoskeltal Medical History: Denies Hx Arthritis Psychiatric Medical History: Reports: Hx Anxiety, Hx Bipolar Disorder, Hx Depression, Hx Schizoaffective Disorder, Hx Schizophrenia - schizoeffective d/o Infectious Medical History: Denies: Hx Hepatitis Past Surgical History: Reports: Hx Cholecystectomy, Hx Gynecologic Surgery, Hx Oral Surgery - all teeth, Hx Orthopedic Surgery - rt thumb, Hx Tubal Ligation. Denies: Hx Hysterectomy, Hx Mastectomy, Hx Open Heart Surgery, Hx Pacemaker - Immunizations Immunizations up to date: Yes Hx Diphtheria, Pertussis, Tetanus Vaccination: Yes Physical Exam - Vital signs Vitals: Temp Pulse Resp BP Pulse Ox 97.6 F 84 18 119/73 99 06/17/16 23:16 06/17/16 23:16 06/17/16 23:16 06/17/16 23:16 06/17/16 23:16 Course - Vital Signs Vital signs: Temp Pulse Resp BP Pulse Ox 98.4 F 79 14 127/70 H 95 06/19/16 07:00 06/19/16 07:00 06/19/16 07:00 06/19/16 07:00 06/19/16 07:00 - Laboratory Result Diagrams: 06/17/16 23:25 06/17/16 23:25 Laboratory results interpreted by me: 06/17/16 06/17/16 06/18/16 23:25 23:25 03:27 WBC 10.8 H AST 37 H ALT 87 H Urine Ketones 20 H Salicylates < 1.0 L Acetaminophen < 10 L Discharge - Discharge Clinical Impression: Schizoaffective disorder, bipolar type, Benzodiazepine abuse, Amphetamine abuse Benzodiazepine overdose Qualifiers: Encounter type: initial encounter Injury intent: intentional self-harm Qualified Code(s): T42.4X2A - Poisoning by benzodiazepines, intentional self- harm, initial encounter Condition: Good Disposition: HOME, SELF-CARE Instructions: Instructions for Home Care Following a Drug Overdose ([facility]), Bipolar Disorder ([facility]) Additional Instructions: Please follow up with your provider, [facility] to discuss your (self-reported) concerns over your medications. Please increase the frequency of your outpatient therapy to discuss your increased social/relational stressors. You have been provided a list of community resources, to include the phone numbers of mobile crisis. Please return if you experience increased suicidal ideations.
--- NOTE | 2016-06-19 11:07 | PSYCHOLOGICAL NOTE ---
Psych Note - Psych Note Psych Note: Conducted brief check-in with patient who is a 45-year-old female under involuntary commitment at [facility]. Patient was initially recommended for discharge yesterday, but held for further evaluation do to lethargic presentation. Patient continues today to present slow to respond, which is likely her baseline presentation. Patient has not been given any narcotics or altering medications. Patient today is alert and oriented. She is able to state the day of the week time of the day her location as well as her name. Mood is euthymic with flat affect. Patient denies suicidal/homicidal ideations , intent, plan, means. Patient denies A/VH; delusions not noted. Thought processes were organized. Conversational speech was slow for rate, tone, and prosody. Intellectual abilities were estimated within the lower average range. Attention and focus were fair. Insight, judgment, impulse control were fair. 1. Benzodiazepine Abuse Disorder (Klonipin) 2. Amphetamine Abuse Disorder (Adderall) 3. Schizoaffective Disorder (by History) As noted yesterday by Dr. Kinney, patient is considered psychiatrically cleared for discharge and recommended to recent her IVC for follow-up with her psychiatric provider. Patient has contact her to request assistance home. Patient was observed ambulating throughout the department without assistance. Patient is considered to be at her baseline functioning. I consulted with Dr. Kinney in regards to the care and management of this patient. ED Coby is in agreement with disposition and recommendations.
--- NOTE | 2016-06-19 11:47 | ER Document Report ---
Doctor's Note Notes: 06/19/16 12:00 Rounds: Chart reviewed and patient interviewed. Vital signs are all essentially normal. Patient's lab work showed positive drug screen for amphetamines and benzos. She had very minor, inconsequential elevations of LFTs. Patient appears to be medically stable for transfer or discharge. Mental health has assessed the patient feels she can be discharged for follow- up at [facility], where she has an appointment to be seen tomorrow. Iva Brown M.D.
[2016-06-19 12:44] VITALS: BP 141/91
== END 2016-06-19 12:45 | disposition home or self-care (01) ==
LOC: ER 23:09
DX: T42.4X2A Poisoning by benzodiazepines, intentional self-harm, initial encounter (principal); R41.82 Altered mental status, unspecified; Z79.899 Other long term (current) drug therapy; X83.8XXD Intentional self-harm by other specified means, subsequent encounter
CPT/HCPCS: 36415; 80053; 80307; 81001; 85025; 93005; 93010; 99285

== ENCOUNTER 2016-07-07 22:23 | Emergency (ER) | payer MEDICARE, MEDICAID ==
[2016-07-08] MEDS ORDERED: PALIPERIDONE 6 MG TAB.ER.24 PO ONE ×2 (01:19→19:19)
--- NOTE | 2016-07-08 01:22 | ER Document Report ---
ED General - General TRAVEL OUTSIDE OF THE [place] IN LAST 30 DAYS: No <RENETTA YBARRA - Last Filed: 07/08/16 01:19> <KAYLIE ACOSTA - Last Filed: 07/08/16 13:21> <JULIA MORTON - Last Filed: 07/08/16 13:48> - General Chief Complaint: Psych Problem Stated Complaint: PSYCH PROBLEM Notes: Patient is a pleasant 45-year-old female presents with complaint of having tactile hallucinations and feeling paranoid. She was recently [facility]. She was discharged. She was placed in an [facility]. She says in [facility] works very well for her. She takes 6 mg at night and 3 mg in the morning. She had a prior or 3 station from her insurance. That has gone through but the pharmacy will not have her medication until Sunday. It's been since Sunday of this week since she 's had her dosage and she says that she started feel worse and worse and therefore his compare because she feels she needs her medication. She denies any suicidal homicidal ideations; however, she says if she continues to go without her medication she may eventually develop these. (RENETTA YBARRA) Patient states that she was just discharged from [facility] on Sunday and has been having difficulties filling her prescription for Invega. She continued to disclose that she will be able to fill it Sunday after getting approvals but is concerned that she will start having suicidal ideation without medication. Patient states she was able to fill the rest of her medications and is taking them as prescribed. (KAYLIE ACOSTA) - HPI Notes: Patient is alert and orientated to person place time and circumstance. Mood is euthymic with congruent affect. Patient denies current suicidal/homicidal ideation. Patient denies any current auditory or visual hallucinations however states she's had been in the past; no delusions are noted. Thought process is currently organized and linear. Conversational speech is within normal rate, tone and prosody. Eye contact was well maintained. Intellectual abilities appear to be within average range. Attention and concentration are fair. Insight, judgment, impulse control are fair. 295.70 (F25.0) Schizoaffective disorder per history provided by patient Impression\plan:Patient is considered psychiatrically cleared for discharge. Patient denies suicidal ideation but worries about it possibly occurring. Patient has an established mental health provider through [facility]. Patient has been having difficulties filling her medication but will be able to worm picker her Invega on Sunday. Patient does not meet IVC criteria per MD GS 122C. Dr. Kinney was consulted on a care management of this patient attending physician is in agreement with recommendations and disposition. (KAYLIE ACOSTA) - Related Data Allergies/Adverse Reactions: haloperidol [From Haldol] Allergy (Severe, Verified 01/10/16 07:35) Anaphylaxis haloperidol lactate [From Haldol] Allergy (Severe, Verified 01/10/16 07:35) Anaphylaxis benztropine [From Cogentin] Allergy (Unknown, Verified 01/10/16 07:35) codeine [Codeine] Adverse Reaction (Intermediate, Verified 01/10/16 07:35) DIZZY, PASSES OUT, GETS NAUSEATED duloxetine HCl [From Cymbalta] Adverse Reaction (Intermediate, Verified 07:35) URINE RETENTION olanzapine [From Zyprexa] Adverse Reaction (Mild, Verified 01/10/16 07:35) INCREASED HEARTRATE Home Medications: Current Home Medications Benztropine Mesylate 1 mg PO QAM 07/08/16 [History] Benztropine Mesylate [Benztropine Mesylate 2 mg Tablet] 2 mg PO QHS 07/08/16 [ History] Buspirone HCl [Buspar 10 mg Tablet] 10 mg PO TID 07/08/16 [History] Citalopram Hydrobromide [Celexa 20 mg Tablet] 20 mg PO DAILY 07/08/16 [History] Lorazepam [Ativan 1 mg Tablet] 1 mg PO BID PRN 07/08/16 [History] Paliperidone [Invega 3 mg Tab.er] 3 mg PO QAM 07/08/16 [History] Paliperidone [Invega 3 mg Tab.er] 6 mg PO QHS 07/08/16 [History] Past Medical History - Social History Smoking Status: Unknown if Ever Smoked Frequency of alcohol use: None Drug Abuse: None Family History: Reviewed & Not Pertinent Patient has suicidal ideation: No Patient has homicidal ideation: No - Past Medical History Cardiac Medical History: Reports: Hx Hypertension Denies: Hx Coronary Artery Disease, Hx Heart Attack Pulmonary Medical History: Denies: Hx Asthma, Hx Bronchitis, Hx COPD, Hx Pneumonia Neurological Medical History: Reports: Hx Seizures - last one 7 yrs ago due to meds. Denies: Hx Cerebrovascular Accident Renal/ Medical History: Denies: Hx Peritoneal Dialysis GI Medical History: Denies: Hx Hepatitis, Hx Hiatal Hernia, Hx Ulcer Musculoskeltal Medical History: Denies Hx Arthritis Psychiatric Medical History: Reports: Hx Anxiety, Hx Bipolar Disorder, Hx Depression, Hx Schizoaffective Disorder, Hx Schizophrenia - schizoeffective d/o Infectious Medical History: Denies: Hx Hepatitis Past Surgical History: Reports: Hx Cholecystectomy, Hx Gynecologic Surgery, Hx Oral Surgery - all teeth, Hx Orthopedic Surgery - rt thumb, Hx Tubal Ligation. Denies: Hx Hysterectomy, Hx Mastectomy, Hx Open Heart Surgery, Hx Pacemaker - Immunizations Immunizations up to date: Yes Hx Diphtheria, Pertussis, Tetanus Vaccination: Yes <RENETTA YBARRA - Last Filed: 07/08/16 01:19> Review of Systems <RENETTA YBARRA - Last Filed: 07/08/16 01:19> <KAYLIE ACOSTA - Last Filed: 07/08/16 13:21> <JULIA MORTON - Last Filed: 07/08/16 13:48> - Review of Systems Notes: My Normal Review Basic REVIEW OF SYSTEMS: CONSTITUTIONAL : Denies fever, chills, or sweats. Denies recent illness. EENT: Denies eye, ear, throat, or mouth pain or symptoms. Denies nasal or sinus congestion. RESPIRATORY: Denies cough, cold, or chest congestion. Denies shortness of breath, difficulty breathing, or wheezing. GASTROINTESTINAL: Denies abdominal pain. Denies nausea, vomiting, or diarrhea. Denies constipation. Last BM: MUSCULOSKELETAL: Denies neck or back pain or joint pain or swelling. SKIN: Denies rash or skin lesions. NEUROLOGICAL: Denies altered mental status or loss of consciousness. Denies headache. Denies weakness or paralysis or loss of use of either side. Denies problems with gait or speech. Denies sensory or motor loss. PSYCHIATRIC: Tactile hallucinations ALL OTHER SYSTEMS REVIEWED AND NEGATIVE. (RENETTA YBARRA) Physical Exam <RENETTA YBARRA - Last Filed: 07/08/16 01:19> <KAYLIE ACOSTA - Last Filed: 07/08/16 13:21> <JULIA MORTON - Last Filed: 07/08/16 13:48> - Vital signs Vitals: Temp Pulse Resp BP Pulse Ox 97.8 F 95 18 119/92 H 98 07/07/16 23:02 07/07/16 23:02 07/07/16 23:02 07/07/16 23:02 07/07/16 23:02 - Notes Notes: General Appearance: Well nourished, alert, cooperative, no acute distress, no obvious discomfort. Vitals: reviewed, See vital signs table. Head: no swelling or tenderness to the head Eyes: PERRL, EOMI, Conjuctiva clear Mouth: No decreasd moisture Lungs: No wheezing, No rales, No rhonci, No accessory muscle use, good air exchange bilaterally. Heart: Normal rate, Regular rythm, No murmur, no rub Abdomen: Normal BS, soft, No rigidity, No abdominal tenderness, No guarding, no rebound, no abdominal masses, no organomegaly Extremities: strength 5/5 in all extremities, good pulses in all extremities, no swelling or tenderness in the extremities, no edema. Skin: warm, dry, appropriate color, no rash Neuro: speech clear, oriented x 3, normal affect, responds appropriately to questions. (RENETTA YBARRA) Course - Laboratory Result Diagrams: 07/08/16 05:32 07/08/16 05:32 <KAYLIE ACOSTA - Last Filed: 07/08/16 13:21> - Laboratory Result Diagrams: 07/08/16 05:32 07/08/16 05:32 <JULIA MORTON - Last Filed: 07/08/16 13:48> - Vital Signs Vital signs: Temp Pulse Resp BP Pulse Ox 98.0 F 78 17 125/83 97 07/08/16 11:17 07/08/16 11:17 07/08/16 11:17 07/08/16 11:17 07/08/16 11:17 - Laboratory Laboratory results interpreted by in: 07/08/16 07/08/16 05:00 05:32 BUN 6 L Ur Leukocyte Esterase TRACE H Salicylates < 1.0 L Acetaminophen < 10 L Discharge <RENETTA YBARRA - Last Filed: 07/08/16 01:19> <KAYLIE ACOSTA - Last Filed: 07/08/16 13:21> <JULIA MORTON - Last Filed: 07/08/16 13:48> - Discharge Clinical Impression: Schizo affective schizophrenia Condition: Stable Disposition: HOME, SELF-CARE Additional Instructions: DEPRESSION: Your evaluation reveals that you have mental depression. While symptoms may be vague, they often include disturbance of sleep, fatigue, loss of appetite , and general loss of interest in life. While depression may be a side effect of drugs, or a reaction to a major change in your life, many cases have no known cause. If depression is acute, and related to a major loss in your life, you can expect it to clear completely with time. If you have been depressed a long time , are prone to repeated bouts of depression or low mood, or have been thinking of suicide, get help. Depression can be treated with anti-depressant medication and counselling. Long-term depression will often take a few weeks to clear, even with appropriate medication. Follow-up care is important. SUICIDAL IDEATION: Suicidal ideation is a common medical term for thoughts about suicide, which may be as detailed as a formulated plan, without the suicidal act itself. Although most people who undergo suicidal ideation do not commit suicide, some go on to make suicide attempts. The range of suicidal ideation varies greatly from fleeting to detailed planning, role playing, and unsuccessful attempts. While thoughts about suicide are common, most people do not carry out serious actions to commit suicide. Based upon your evaluation and discussion with you, we do not believe you are currently at risk to act upon your thoughts of suicide. You have agreed to return to the Emergency Department, at any time , if you feel inclined to act upon your suicidal thoughts. FOLLOW-UP CARE: If you have been referred to a physician for follow-up care, call the physician s office for an appointment as you were instructed or within the next two days. If you experience worsening or a significant change in your symptoms, notify the physician immediately or return to the Emergency Department at any time for re-evaluation. You are recommended to worm picker your medications on Sunday. Referrals: [facility] [Primary Care Provider] - Follow up as needed Danny Gupta [Outside] - Follow up in 3-5 days
[2016-07-08 05:23] LABS: APPEARANCE,URINE CLEAR; BILIRUBIN,URINE NEGATIVE (NEGATIVE); GLUCOSE, URINE NEGATIVE (NEGATIVE); KETONES,URINE NEGATIVE (NEGATIVE); LEUKOCYTE ESTERASE,URINE TRACE (NEGATIVE); NITRITE,URINE NEGATIVE (NEGATIVE); PROTEIN,URINE NEGATIVE (NEGATIVE); URINE SPECIFIC GRAVITY 1.002; UROBILINOGEN,URINE NEGATIVE mg/dL (<2.0)
[2016-07-08 05:35] LABS: URINE BARBITURATES SCREEN NEGATIVE; URINE METHADONE SCREEN NEGATIVE; URINE OPIATES LOW NEGATIVE; URINE PHENCYCLIDINE SCREEN NEGATIVE
[2016-07-08 05:52] LABS: ABSOLUTE EOSINOPHILS # (AUTO) 0.2 10^3/uL (0.0-0.6); ABSOLUTE LYMPHOCYTES (AUTO) 3.2 10^3/uL (0.5-4.7); ABSOLUTE MONOCYTES (AUTO) 0.8 10^3/uL (0.1-1.4); ABSOLUTE NEUT (AUTO) 5.9 10^3/uL (1.7-8.2); BASOPHILS % (AUTO) 0.1 % (0-2); EOSINOPHILS % (AUTO) 1.6 % (0-6); HEMOGLOBIN 12.4 g/dL (12.0-15.5); HGB HCT DIFFERENCE 0.2; LYMPHOCYTES % (AUTO) 31.9 % (13-45); MEAN CORPUSCULAR HEMOGLOBIN 28.5 pg (27.0-33.4); MEAN CORPUSCULAR HGB CONC 33.6 g/dL (32.0-36.0); MEAN CORPUSCULAR VOLUME 85 fl (80-97); MONOCYTES % (AUTO) 7.5 % (3-13); RED BLOOD COUNT 4.36 10^6/uL (3.72-5.28); RED CELL DISTRIBUTION WIDTH 13.5 % (11.5-14.0); SEGMENTED NEUTROPHILS % (AUTO) 58.9 % (42-78)
[2016-07-08 06:22] LABS: ALANINE AMINOTRANSFERASE 30 U/L (9-52); ALBUMIN 3.8 g/dL (3.5-5.0); ALKALINE PHOSPHATASE 63 U/L (38-126); ANION GAP 13 (5-19); ASPARTATE AMINO TRANSFERASE 18 U/L (14-36); BILIRUBIN,DIRECT 0.1 mg/dL (0.0-0.4); BILIRUBIN,TOTAL 0.3 mg/dL (0.2-1.3); BLOOD UREA NITROGEN 6 mg/dL (7-20); CALCIUM 9.1 mg/dL (8.4-10.2); CARBON DIOXIDE 24 mmol/L (22-30); CHLORIDE 107 mmol/L (98-107); CREATININE RESULT 0.68 mg/dL (0.52-1.25); GLUCOSE 95 mg/dL (75-110); POTASSIUM 4.1 mmol/L (3.6-5.0); SODIUM 143.6 mmol/L (137-145); TOTAL PROTEIN 6.6 g/dL (6.3-8.2)
[2016-07-08 06:29] LABS: ALCOHOL < 10 mg/dL (NONE DETECTED)
--- NOTE | 2016-07-08 09:46 | EKG REPORT ---
SEVERITY:- BORDERLINE ECG - SINUS RHYTHM LVH BY VOLTAGE : Confirmed by: Sea Velez 08-Jul-2016 09:44:32
[2016-07-08 19:48] VITALS: BP 148/83
== END 2016-07-08 19:48 | disposition home or self-care (01) ==
LOC: ER 22:23
DX: F25.9 Schizoaffective disorder, unspecified (principal); T43.596A Underdosing of other antipsychotics and neuroleptics, initial encounter; Z91.14 Patient's other noncompliance with medication regimen; Z88.8 Allergy status to other drugs, medicaments and biological substances; I10 Essential (primary) hypertension
CPT/HCPCS: 93005; 99284; 36415; 80307 ×4; 84703; 85025; 80053; 81001; 93010; A9270; J3490

== ENCOUNTER 2016-07-09 18:10 | Emergency (ER) | payer MEDICARE, MEDICAID ==
[2016-07-09 18:19] VITALS: BP 132/98
[2016-07-09] MEDS ORDERED: PALIPERIDONE 6 MG TAB.ER.24 PO ONE (19:01)
--- NOTE | 2016-07-09 19:07 | ER Document Report ---
HPI - HPI Patient complains to provider of: medication refill Quality of pain: No pain Pain Level: 0 Context: Patient presents to the emergency department with request for medication. Patient reports that she is schizoaffective. She reports she's been on invega for years on and off. She reports that is the only thing that works for her. Last time she was unable to fill her medication she attempted suicide. She is unable to fill this medication until Sunday due to insurance reasons. Patient is here for one dose of invega. She denies suicide or homicide ideations. Patient has a friend with her. Patient is calm laughs easily. Associated Symptoms: None Exacerbated by: Denies Relieved by: Denies Similar symptoms previously: Yes Recently seen / treated by doctor: Yes - REPRODUCTIVE Reproductive: DENIES: : - DERM Skin Color: Normal Past Medical History - General Information source: Patient - Social History Smoking Status: Current Every Day Smoker Cigarette use (# per day): Yes Frequency of alcohol use: None Drug Abuse: None Occupation: none Lives with: Family Family History: Reviewed & Not Pertinent Patient has suicidal ideation: No Patient has homicidal ideation: No - Past Medical History Cardiac Medical History: Reports: Hx Hypertension Denies: Hx Coronary Artery Disease, Hx Heart Attack Pulmonary Medical History: Denies: Hx Asthma, Hx Bronchitis, Hx COPD, Hx Pneumonia Neurological Medical History: Reports: Hx Seizures - last one 7 yrs ago due to meds. Denies: Hx Cerebrovascular Accident Renal/ Medical History: Denies: Hx Peritoneal Dialysis GI Medical History: Denies: Hx Hepatitis, Hx Hiatal Hernia, Hx Ulcer Musculoskeltal Medical History: Denies Hx Arthritis Psychiatric Medical History: Reports: Hx Anxiety, Hx Bipolar Disorder, Hx Depression, Hx Schizoaffective Disorder, Hx Schizophrenia - schizoeffective d/o Infectious Medical History: Denies: Hx Hepatitis Past Surgical History: Reports: Hx Cholecystectomy, Hx Gynecologic Surgery, Hx Oral Surgery - all teeth, Hx Orthopedic Surgery - rt thumb, Hx Tubal Ligation. Denies: Hx Hysterectomy, Hx Mastectomy, Hx Open Heart Surgery, Hx Pacemaker - Immunizations Immunizations up to date: Yes Hx Diphtheria, Pertussis, Tetanus Vaccination: Yes Vertical Provider Document - CONSTITUTIONAL Agree With Documented VS: Yes Exam Limitations: No Limitations General Appearance: WD/WN, No Apparent Distress - calm - INFECTION CONTROL TRAVEL OUTSIDE OF THE [place] IN LAST 30 DAYS: No - HEENT HEENT: Atraumatic, Normocephalic - NECK Neck: Normal Inspection, Supple. negative: Lymphadenopathy-Left, Lymphadenopathy-Right - RESPIRATORY Respiratory: Breath Sounds Normal, No Respiratory Distress O2 Sat by Pulse Oximetry: 97 - CARDIOVASCULAR Cardiovascular: Regular Rhythm, Tachycardia - MUSCULOSKELETAL/EXTREMETIES Musculoskeletal/Extremeties: MAEW, FROM, Non-Tender - NEURO Level of Consciousness: Awake, Alert, Appropriate Motor/Sensory: No Motor Deficit - DERM Integumentary: Warm, Dry Course - Re-evaluation Re-evalutation: 07/09/16 19:13 reviewed previous notes. will provide patient with 6mg invega - Vital Signs Vital signs: Temp Pulse Resp BP Pulse Ox 98.8 F 119 H 17 132/98 H 97 07/09/16 18:18 07/09/16 18:18 07/09/16 18:18 07/09/16 18:18 07/09/16 18:18 Discharge - Discharge Clinical Impression: Medication refill, Elevated blood pressure reading Condition: Stable Disposition: HOME, SELF-CARE Additional Instructions: *You have been treated for medication refill, elevated blood pressure reading *Obtain your medication tomorrow *Follow up with your mental health provider as scheduled *Return to ED for worsening condition, changes, needs, concerns Monitor your blood pressure. Your blood pressure was elevated today. This may be because you were anxious, in pain or because you need medication. It is important to follow up with your primary care provider for full evaluation. Forms: Elevated Blood Pressure
== END 2016-07-09 19:26 | disposition home or self-care (01) ==
LOC: ER 18:10
DX: F25.9 Schizoaffective disorder, unspecified (principal); R03.0 Elevated blood-pressure reading, without diagnosis of hypertension
CPT/HCPCS: 99281; A9270; J3490

== ENCOUNTER 2016-10-09 08:33 | Day surgery (SDC) | payer MEDICARE, MEDICAID ==
[~2016-10-09 08:33] MED LIST: PROPOFOL INJ 200 MG/20 ML VIAL IV ONE
[2016-10-09 10:15] VITALS: BP 139/78
--- NOTE | 2016-10-09 13:11 | Operative Report ---
Operative Report DATE OF SURGERY: 10/09/16 Operative Report: The risks benefits and alternatives of the procedure explained to the patient in detail and informed consent is obtained.A GIF Olympus video scope was inserted into the patient's mouth and hypopharynx, the esophagus is identified intubated and insufflated, the scope was then advanced through the esophagus stomach and duodenum, retroflexion maneuver is done, the esophagus stomach and first and second portions of the duodenum examined PREOPERATIVE DIAGNOSIS: Possible melena. Rule out celiac sprue. Epigastric pain POSTOPERATIVE DIAGNOSIS: Random biopsies in the small intestine rule out celiac sprue. Gastritis status post biopsy rule out Helicobacter pylori OPERATION: EGD with biopsy SURGEON: MIHIR HART ANESTHESIA: LMAC TISSUE REMOVED OR ALTERED: Gastric mucosal specimens obtained. Duodenal mucosal specimens obtained COMPLICATIONS: None. ESTIMATED BLOOD LOSS: None. INTRAOPERATIVE FINDINGS: Normal esophagus. No peptic ulcer disease seen. No active bleeding noted PROCEDURE: Patient tolerated procedure well. No immediate postprocedure complications are noted. Patient discharged in good condition. Discharge date 10/09/2016. Discharge diet: Regular. Discharge activity: Regular. 2-3 week follow-up to discuss findings. Patient is instructed to call the office or proceed to the emergency room should there be any further problems or questions. We will wait on pathology.
== END 2016-10-09 10:00 | disposition home or self-care (01) ==
LOC: END 08:33
PROVIDERS: ATTEND Internal Medicine Gastroenterology
PROC: 0DB98ZX Excision of Duodenum, Via Natural or Artificial Opening Endoscopic, Diagnostic (ICD-10-PCS; 2016-10-09)
PROC: 0DB68ZX Excision of Stomach, Via Natural or Artificial Opening Endoscopic, Diagnostic (ICD-10-PCS; principal; 2016-10-09 09:45)
DX: K31.9 Disease of stomach and duodenum, unspecified (principal); I10 Essential (primary) hypertension; F17.210 Nicotine dependence, cigarettes, uncomplicated; E78.5 Hyperlipidemia, unspecified; F20.9 Schizophrenia, unspecified; D64.9 Anemia, unspecified; F31.9 Bipolar disorder, unspecified; Z79.899 Other long term (current) drug therapy; Z79.1 Long term (current) use of non-steroidal anti-inflammatories (NSAID); Z88.5 Allergy status to narcotic agent; Z88.8 Allergy status to other drugs, medicaments and biological substances
CPT/HCPCS: 43239; 88342 ×2; 88305 ×2; J2704; 740

== ENCOUNTER → 2017-04-18 | Outpatient (CLI) | payer MEDICARE, MEDICAID ==
--- NOTE | 2017-04-18 09:53 | RADIOLOGY REPORT (SQ) ---
EXAM DESCRIPTION: MRI THORACIC SPINE WITHOUT COMPLETED DATE/TIME: 04/18/2017 9:42 am REASON FOR STUDY: M54.6 PAIN IN THORACIC SPINE M54.6 PAIN IN THORACIC SPINE COMPARISON: MRI lumbar spine 01/16/2017 TECHNIQUE: Sagittal and Axial imaging includes T1, T2, STIR and gradient echo sequences. LIMITATIONS: None. FINDINGS: LOCALIZER: No worrisome findings. ALIGNMENT: Normal. VERTEBRAE: Multilevel chronic appearing central upper endplate Schmorl's nodes at T10, T12, and L1 BONE MARROW: Normal. No marrow replacement or reactive changes. HARDWARE: None in the spine. CORD: Normal in size and signal intensity. SOFT TISSUES: No soft tissue masses. THORACIC DISCS T1-T12: Small central disc protrusion/ herniation with superior migration is present a t the T7-8 level. This effaces the ventral thecal sac and abuts the ventral cord without cord flatte carson or abnormal intrinsic cord signal, best shown on axial T2 image 14 and sagittal image 7. Elsewh ere at T7-8, there is no significant central or foraminal encroachment. OTHER: No other significant finding. IMPRESSION: No acute thoracic compression deformity Small central disc protrusion/ herniation at T7-8 TECHNICAL DOCUMENTATION: JOB ID: [id number] [employer]- All Rights Reserved
== END ==
LOC: RAD 08:32
PROVIDERS: ATTEND Nurse Practitioner Family
DX: M51.24 Other intervertebral disc displacement, thoracic region (principal)
CPT/HCPCS: 72146

== ENCOUNTER → 2017-04-24 | Outpatient (CLI) | payer MEDICARE, MEDICAID ==
--- NOTE | 2017-04-24 14:52 | RADIOLOGY REPORT (SQ) ---
EXAM DESCRIPTION: COOKIE SWALLOW COMPLETED DATE/TIME: 04/24/2017 8:59 am REASON FOR STUDY: DYSPHAGIA R13.10 DYSPHAGIA, UNSPECIFIED COMPARISON: MODIFIED BARIUM SWALLOW 04/04/2016. TECHNIQUE: Videofluoroscopic swallowing examination was performed in conjunction with speech patholo gy. Videofluoroscopic imaging was obtained and reviewed and these are the findings: RADIATION DOSE: 1.2 minutes of fluoroscopy was used. 1 images saved to PACS. LIMITATIONS: None FINDINGS: The patient was brought into the fluoro room and placed upright on a modified barium swall ow chair. The patient was then given multiple consistencies mixed with barium to swallow under live fluoroscopic video guidance. According to the Speech Pathologist there was laryngeal penetration wit h thin liquids to the level of the cords. No definite aspiration seen. IMPRESSION: LARYNGEAL PENETRATION TO THE LEVEL OF THE CORDS. NO TRACHEAL ASPIRATION SEEN.PLEASE SEE SPEECH PATHOLOGIST REPORT FOR OTHER FINDINGS AND RECOMMENDATIONS. COMMENT: Quality ID [id number]: Final reports for procedures using fluoroscopy that document radiation exp osure indices, or exposure time and number of fluorographic images (if radiation exposure indices are not available) TECHNICAL DOCUMENTATION: JOB ID: [id number] [employer]- All Rights Reserved
--- NOTE | 2017-04-24 15:28 | ST Modified Barium Swallow ---
Recommendation - Recommendations Recommendations: Recommend reduced rate with liquids, and continue with current diet. May benefit from further gastrointestinal assessment duue to nature of symptoms. Medical Diagnoses - Medical Diagnoses Medical Diagnosis Description & ICD-10 Code(s): dysphagia R13.10, tardive dyskinesia Other Medical Diagnoses/Co-Morbidities: tardive dyskinesia, reflux, depression, arthritis, high blood presure, reflux, urinary incontenance, gallbladder removed ST Modified Barium Swallow - General Date: 04/24/17 Referring Physician: Faye Morel ELIGIBILITY TECHNICIAN Risks/Precautions: None Reason for Referral: choking sensation with meals. - History History obtained from: Patient -: Medical - Patient reports that she has difficulty swallowing, and that trouble can happen "with anything". She has had prior MBSS, which revealed aspiration with straw sips of liquid only, and a recent outpatient swallowing assessment. Medications: pt unable to recall medications. Allergies: haloperidol, benztropine, codeine, symbalta, zyprexa. patient also reports wheat, rice, shellfish, peanut, and corn allergy - Functional Status Prior Functional Status: INDEPENDENT: feeding Current Functional Limitations: feeding - Subjective Patient/caregiver goal(s): safe swallow Cognitive-Linguistic Function: Functional Speech Intelligibility: Mildly dysarthric Current Nutritional Means: PO Current PO diet: Soft Current symptoms: c/o Globus sensation Pain: Patient reports, 0/5 - Objective Assessment: Upright, Left Lateral - Food Trials Used Food trials used: Thin liquids, Pureed, Soft solids - antonio cracker not used due to wheat allergy reported by patient - Oral-Motor Skills Dentition: Partial Laryngeal Function: Volitional Cough - wfl, Volitional Swallow - wfl - Assessment Oral prep: Adeq, for consist. tested Labial closure: Adequate Leakage: None Mastication: Adequate - for trial textures Oral stage: Normal for this Procedure - Pharyngeal Stage Initiation of Pharyngeal Stage Reflex: Normal Decreased laryngeal elevation: No Reduced Velopharyngeal Closure: no Reduced pressure generation: No reduced tongue-based retraction: No Pre-swallow pooling in valleculae: Mild - with liquids Pre-Swallow pooling in pyriforms: None Reduced Thyro-Hyoid approximation: Yes - mild Reduced epiglottic excursion: No Reduced pharyngeal peristalsis/contraction: No Post-swallow residulas vallecular: None Post-Swallow residuals in pyriforms: None - Esophageal Stage Esophageal Stage: Possible signs of reduced movement through the esophagus. May benefit from further evaluation. - Fall Risk Assessment Medications/Conditions that increase fall risks include: Antidepressants, sedatives, anti-arrhythmic, diuretic, benzodiazipenes, neuroleptics. BP regulation problems, cardiac problems, balance or gait deficits, neurological problems. Is patient considered at risk for falls: no Fall Risk Actions Taken: No action needed - Behavioral Observations During evaluation process patient: was pleasant, was cooperative, able to answer questions - Treatment / Educational Needs: Treatment/Education Needs: Treatment consisted of patient education on the role of the Speech Pathologist. Patient's plan of care and golas were communicated as well as scheduling and attendance policies. Recommendations for initial home program were shared. Patient demonstrated understanding and verbalized agreement. - Impression/Summary Laryngeal Penetration: Yes, Deep - to level of vocal folds, during swallow - with multiple sequential swallow Consistency: Thin Tracheal Aspiration: no Compesatory strategies: reduced rate Patient presents with: Pharyngeal stage dysph., Mild-Moderate Risk of Aspiration: Minimal Evaluation and Findings: Patient presents with functional swallow for trial textures. Penetration seen with subsequent cup sips of thin liquid, which was seen on previous study. Patient already able to state swallowing recommendations. - Recommendations Solid diet recommendations: Mechanical Soft Liquid Diet Modification: Thin Dysphagia therapy with SHINGLE BOLT CUTTER: no Recommended techniques: Fully Upright During Meal, Small Bites and Sips Information, Precautions and Recommendations: Patient (Written), Patient (Verbal ) - Plan of Care Strategies to optimize patient understanding include:: ongoing assessment of educational needs, implementation of educational strategies, and re-education. - - -: Thank you for the opportunity to work with this patient and his/her family. Should you have any questions about this patient's plan or progress, I can be reached at [phone]. Charge G Code? - - -: Yes ST F.L. Impairment Category - Rationale Based On Rationale Based On: Func. Asses. Tool Results - Swallowing Current G8996: CJ 20-39% Impaired Goal G8997: CJ 20-39% Impaired Discharge G8998: CJ 20-39% Impaired
== END ==
LOC: RAD 08:19
PROVIDERS: ATTEND Nurse Practitioner Family
DX: R13.10 Dysphagia, unspecified (principal)
CPT/HCPCS: 74230; 92611; G8996; G8997; G8998

== ENCOUNTER 2017-05-08 12:37 | Day surgery (SDC) | payer MEDICARE, MEDICAID ==
[~2017-05-08 12:37] MED LIST changes: +DIPHENHYDRAMINE HCL 50 MG/ML VIAL ONE; +EPINEPHRINE INJ 1 MG/10 ML DISP.SYRIN ONE; +FENTANYL CITRATE INJ/PF 100 MCG/2 ML AMPUL ONE; +FLUMAZENIL INJ 0.5 MG/5 ML VIAL ONE; +GLUCAGON,HUMAN RECOMB 1 MG INJ ONE; +MIDAZOLAM 2 MG/2 ML INJ ONE; +NALOXONE HCL INJ/PF 0.4 MG/1 ML SDV ONE; +ONDANSETRON HCL INJ/PF 4 MG/2 ML SDV ONE; -PROPOFOL INJ 200 MG/20 ML VIAL IV ONE
--- NOTE | 2017-05-08 14:32 | Operative Report ---
Operative Report DATE OF SURGERY: 05/08/17 Operative Report: The risks benefits and alternatives of the procedure explained to the patient in detail and informed consent is obtained.A GIF Olympus video scope was inserted into the patient's mouth and hypopharynx, the esophagus is identified intubated and insufflated ,the scope was then advanced through the esophagus stomach and duodenum, retroflexion maneuver is done, the esophagus stomach and first and second portions of the duodenum examined PREOPERATIVE DIAGNOSIS: Dysphagia POSTOPERATIVE DIAGNOSIS: Schatzki's ring status post breakage, mild esophagitis. Gastritis status post biopsy rule out Helicobacter pylori OPERATION: EGD with biopsy SURGEON: MIHIR HART ANESTHESIA: Moderate Sedation - 2 mg of Versed, 25 mcg of fentanyl. Conscious sedation monitoring time 30 minutes. TISSUE REMOVED OR ALTERED: As noted above. COMPLICATIONS: None. ESTIMATED BLOOD LOSS: None. INTRAOPERATIVE FINDINGS: As noted above. PROCEDURE: Patient tolerated procedure well. No immediate postprocedure complications are noted. Patient discharged in good condition. Discharge date 05/08/2017. Discharge diet: Regular. Discharge activity: Regular. 2-3 week follow-up to discuss findings. Patient is instructed call the office or proceed to the emergency room should there be any further problems or questions. We will await pathology.
[2017-05-08 15:28] VITALS: BP 137/74
== END 2017-05-08 14:57 | disposition home or self-care (01) ==
LOC: END 12:37
PROVIDERS: ATTEND Internal Medicine Gastroenterology
PROC: 0DB58ZX Excision of Esophagus, Via Natural or Artificial Opening Endoscopic, Diagnostic (ICD-10-PCS; 2017-05-08)
PROC: 0DB68ZX Excision of Stomach, Via Natural or Artificial Opening Endoscopic, Diagnostic (ICD-10-PCS; principal; 2017-05-08 13:00)
DX: K22.2 Esophageal obstruction (principal); K29.50 Unspecified chronic gastritis without bleeding; I10 Essential (primary) hypertension; R47.1 Dysarthria and anarthria; F20.9 Schizophrenia, unspecified; G31.84 Mild cognitive impairment of uncertain or unknown etiology; E78.5 Hyperlipidemia, unspecified; K58.9 Irritable bowel syndrome, unspecified; G40.909 Epilepsy, unspecified, not intractable, without status epilepticus
CPT/HCPCS: 43239; 88342 ×2; 88305 ×2; J2250; J3010; J0171; J1200; J1610; J2310; J2405; J3490

== ENCOUNTER → 2017-08-28 | Outpatient (CLI) | payer MEDICARE, MEDICAID ==
--- NOTE | 2017-08-28 11:39 | RADIOLOGY REPORT (SQ) ---
EXAM DESCRIPTION: U/S RETROPERITON (RENAL/AORTA) COMPLETED DATE/TIME: 08/28/2017 10:44 am REASON FOR STUDY: ACUTE KIDNEY FAILURE, UNSPECIFIED (N17.9) N17.9 ACUTE KIDNEY FAILURE, UNSPECIFIED COMPARISON: MRI lumbar spine 01/16/2017 TECHNIQUE: Dynamic and static grayscale images acquired of the kidneys and bladder and recorded on P ACS. Additional selected color Doppler and spectral images recorded. LIMITATIONS: None. FINDINGS: RIGHT KIDNEY: Normal size, 9.5 cm in length. Normal echogenicity. No solid or suspicious m asses. No hydronephrosis. No calcifications. LEFT KIDNEY: Normal size, 10 cm in length. Normal echogenicity. No solid or suspicious masses. No hy dronephrosis. No calcifications. BLADDER: No masses. No bladder calculi. OTHER FINDINGS: No other significant finding. IMPRESSION: NORMAL RENAL AND BLADDER ULTRASOUND. TECHNICAL DOCUMENTATION: JOB ID: [id number] [employer]- All Rights Reserved Reading location - IP/workstation name: [email or web address]
== END ==
LOC: RAD 09:44
PROVIDERS: ATTEND Nurse Practitioner Family
DX: N17.9 Acute kidney failure, unspecified (principal)
CPT/HCPCS: 76770

== ENCOUNTER → 2018-01-29 | Outpatient (CLI) | payer MEDICARE, MEDICAID ==
--- NOTE | 2018-01-29 15:40 | EKG REPORT ---
SEVERITY:- NORMAL ECG - SINUS RHYTHM : Confirmed by: Susana Jaimes MD 29-Jan-2018 15:39:30
--- NOTE | 2018-01-30 13:47 | XCELERA REPORT ---
[address] [address] Transthoracic Echocardiogram Report Name: RASHEED SEARS Age: 47 yrs Gender: Female : 1970 Patient Status: Outpatient Patient Location: RAD Study Date: 01/29/2018 11:42 AM Height: 68 in Weight: 205 lb BSA: 2.1 m2 Procedure: A two-dimensional transthoracic echocardiogram with color flow and Doppler was performed. Study Quality: Fair. Reason For Study: MURMUR History: MURMUR. Ordering Physician: EFRAIN FRIEDMAN Performed By: Skyla Sanchez Interpretation Summary The left ventricle is normal in size. There is normal left ventricular wall thickness. LV EF is 65% Left ventricular systolic function is normal. Doppler measurements suggest impaired left ventricular relaxation, which is associated with grade I/IV or mild diastolic dysfunction The left ventricular wall motion is normal. There is no thrombus. There is no ventricular septal defect visualized. The right ventricle is normal in size and function. The right atrium is normal. The left atrial size is normal. The interatrial septum is intact with no evidence for an atrial septal defect. There is no evidence of mitral valve prolapse. There is no mitral valve stenosis. There is a trace amount of mitral regurgitation The aortic valve is trileaflet. The aortic valve opens well. There is no aortic valve stenosis There is no LVOT obstruction. No aortic regurgitation is present. There is no tricuspid stenosis. No tricuspid regurgitation. Unable to calculate RVSP due lack of TR jet. There is no pulmonic valvular stenosis. There is no pulmonic valvular regurgitation. The aortic root is normal size. There is no pericardial effusion. MMode/2D Measurements & Calculations RVDd: 3.1 cm LVIDd: 4.7 cm FS: 35.6 % Ao root diam: 2.7 cm IVSd: 1.0 cm LVIDs: 3.0 cm EDV(Teich): 101.5 ml Ao root area: 5.7 cm2 LVPWd: 0.99 cm ESV(Teich): 35.5 ml LA dimension: 3.3 cm EF(Teich): 65.1 % Doppler Measurements & Calculations MV E max vkia: MV P1/2t max vika: Ao V2 max: LV V1 max P.7 cm/sec 66.7 cm/sec 112.4 cm/sec 3.4 mmHg MV A max vika: MV P1/2t: 69.5 msec Ao max PG: LV V1 max: 82.3 cm/sec MVA(P1/2t): 3.2 cm2 5.1 mmHg 91.8 cm/sec MV E/A: 0.81 MV dec slope: 280.8 cm/sec2 MV dec time: 0.26 sec PA V2 max: MV P1/2t-pr_phl: 88.4 cm/sec 69.5 msec PA max P.1 mmHg Left Ventricle The left ventricle is normal in size. There is normal left ventricular wall thickness. LV EF is 65%. Left ventricular systolic function is normal. Doppler measurements suggest impaired left ventricular relaxation, which is associated with grade I/IV or mild diastolic dysfunction. The left ventricular wall motion is normal. There is no thrombus. There is no ventricular septal defect visualized. Right Ventricle The right ventricle is normal in size and function. Atria The right atrium is normal. The left atrial size is normal. The interatrial septum is intact with no evidence for an atrial septal defect. Mitral Valve There is no evidence of mitral valve prolapse. There is no vegetation seen on the mitral valve. There is no mitral valve stenosis. There is a trace amount of mitral regurgitation. Aortic Valve The aortic valve is trileaflet. The aortic valve opens well. There is no aortic valvular vegetation. There is no aortic valve stenosis. There is no LVOT obstruction. No aortic regurgitation is present. Tricuspid Valve There is no tricuspid stenosis. No tricuspid regurgitation. Unable to calculate RVSP due lack of TR jet. Pulmonic Valve There is no pulmonic valvular stenosis. There is no pulmonic valvular regurgitation. Great Vessels The aortic root is normal size. Effusions There is no pericardial effusion. : EFRAIN FRIEDMAN > Susana Jaimes
--- NOTE | 2018-01-30 15:21 | WOMENS IMAGING REPORT ---
EXAM DESCRIPTION: BILAT DIAGNOSTIC MAMMO W/CAD; U/S BREAST UNILATERAL, COMPL COMPLETED DATE/TIME: 01/29/2018 10:28 am; 01/29/2018 10:58 am REASON FOR STUDY: BILATERAL DIAGNSOTIC MAMMO /N64.4; N64.4 LEFT BREAST PAIN R01.1 CARDIAC MURMUR, U NSPECIFIED N64.4 MASTODYNIA left breast pain COMPARISON: 2011, 2013 TECHNIQUE: Standard craniocaudal and mediolateral oblique views of each breast recorded using digita l acquisition. Additional left breast 90 mediolateral views. Left whole breast ultrasound was also performed given history of left breast pain LIMITATIONS: None. FINDINGS: RIGHT BREAST MASSES: No suspicious masses. CALCIFICATIONS: No new or suspicious calcifications. ARCHITECTURAL DISTORTION: None. DEVELOPING DENSITY: None. ASYMMETRY: None noted. OTHER: No other significant findings. LEFT BREAST MASSES: No suspicious masses. CALCIFICATIONS: No new or suspicious calcifications. ARCHITECTURAL DISTORTION: None. DEVELOPING DENSITY: None. ASYMMETRY: None noted. OTHER: No other significant finding. Read with the assistance of CAD: .[facility] - R2 Cenova Version 1.3 .[facility] Imaging - R2 Cenova Version 1.3 .[facility] Imaging - R2 Cenova Version 2.4 .[facility] - R2 Cenova Version 2.4 .[facility] - R2 Teacher[employer] Aide Version 9.2 Left whole breast ultrasound: Left whole breast ultrasound was performed. No masses. No cysts. No dilated ducts. No worrisome a coustic absorption. No focal findings IMPRESSION: No mammographic evidence for malignancy right breast. No mammographic or sonographic evidence for malignancy left breast BREAST DENSITY: d. The breasts are extremely dense, which lowers the sensitivity of mammography. BIRAD: 1 Negative. RECOMMENDATION: RECOMMENDED FOLLOW UP: Please continue yearly bilateral screening mammography/ tomos ynthesis in January 2019. Please consider bilateral screening tomosynthesis given extremely dense f ibroglandular tissue bilaterally SPECIFIC INTERVENTION/IMAGING/CONSULTATION RECOMMENDED:No additional intervention/ imaging/consultati on needed at this time. COMMUNICATION:Patient notified by letter COMMENT: The patient has been notified of the results by letter per SA requirements. Additional no tification policies are in place for contacting patient with suspicious or incomplete findings. Quality ID #[id number]: The [employer] recommends an annual screening mammogram for women aged 40 years or over. This facility utilizes a reminder system to ensure that all patients receive reminder letters, and/or direct phone calls for appointments. This includes reminders for routine scr eening mammograms, diagnostic mammograms, or other Breast Imaging Interventions when appropriate. Th is patient will be placed in the appropriate reminder system. The [employer] (ACR) has developed recommendations for screening MRI of the breast s in certain patient populations, to be used in conjunction with mammography. Breast MRI surveillanc e may be appropriate for women with more than 20% lifetime risk of developing breast cancer as deter mined by genetic testing, significant family history of the disease, or history of mantle radiation f or Hodgkins Disease. ACR Practice Guidelines 2008. TECHNICAL DOCUMENTATION: FINDING NUMBER: (1) ASSESSMENT: (1) JOB ID: [id number] [email or web address]- All Rights Reserved Reading location - IP/workstation name: [email or web address]
--- NOTE | 2018-01-30 15:21 | WOMENS IMAGING REPORT ---
EXAM DESCRIPTION: BILAT DIAGNOSTIC MAMMO W/CAD; U/S BREAST UNILATERAL, COMPL COMPLETED DATE/TIME: 01/29/2018 10:28 am; 01/29/2018 10:58 am REASON FOR STUDY: BILATERAL DIAGNSOTIC MAMMO /N64.4; N64.4 LEFT BREAST PAIN R01.1 CARDIAC MURMUR, U NSPECIFIED N64.4 MASTODYNIA left breast pain COMPARISON: 2011, 2013 TECHNIQUE: Standard craniocaudal and mediolateral oblique views of each breast recorded using digita l acquisition. Additional left breast 90 mediolateral views. Left whole breast ultrasound was also performed given history of left breast pain LIMITATIONS: None. FINDINGS: RIGHT BREAST MASSES: No suspicious masses. CALCIFICATIONS: No new or suspicious calcifications. ARCHITECTURAL DISTORTION: None. DEVELOPING DENSITY: None. ASYMMETRY: None noted. OTHER: No other significant findings. LEFT BREAST MASSES: No suspicious masses. CALCIFICATIONS: No new or suspicious calcifications. ARCHITECTURAL DISTORTION: None. DEVELOPING DENSITY: None. ASYMMETRY: None noted. OTHER: No other significant finding. Read with the assistance of CAD: .[facility] - R2 Cenova Version 1.3 .[facility] Imaging - R2 Cenova Version 1.3 .[facility] Imaging - R2 Cenova Version 2.4 .[facility] - R2 Cenova Version 2.4 .[facility] - R2 [employer]ting [employer] S[employer]ing Super[employer] Version 9.2 Left whole breast ultrasound: Left whole breast ultrasound was performed. No masses. No cysts. No dilated ducts. No worrisome a coustic absorption. No focal findings IMPRESSION: No mammographic evidence for malignancy right breast. No mammographic or sonographic evidence for malignancy left breast BREAST DENSITY: d. The breasts are extremely dense, which lowers the sensitivity of mammography. BIRAD: 1 Negative. RECOMMENDATION: RECOMMENDED FOLLOW UP: Please continue yearly bilateral screening mammography/ tomos ynthesis in January 2019. Please consider bilateral screening tomosynthesis given extremely dense f ibroglandular tissue bilaterally SPECIFIC INTERVENTION/IMAGING/CONSULTATION RECOMMENDED:No additional intervention/ imaging/consultati on needed at this time. COMMUNICATION:Patient notified by letter COMMENT: The patient has been notified of the results by letter per SA requirements. Additional no tification policies are in place for contacting patient with suspicious or incomplete findings. Quality ID #[id number]: The [employer] recommends an annual screening mammogram for women aged 40 years or over. This facility utilizes a reminder system to ensure that all patients receive reminder letters, and/or direct phone calls for appointments. This includes reminders for routine scr eening mammograms, diagnostic mammograms, or other Breast Imaging Interventions when appropriate. Th is patient will be placed in the appropriate reminder system. The [employer] (ACR) has developed recommendations for screening MRI of the breast s in certain patient populations, to be used in conjunction with mammography. Breast MRI surveillanc e may be appropriate for women with more than 20% lifetime risk of developing breast cancer as deter mined by genetic testing, significant family history of the disease, or history of mantle radiation f or Hodgkins Disease. ACR Practice Guidelines 2008. TECHNICAL DOCUMENTATION: FINDING NUMBER: (1) ASSESSMENT: (1) JOB ID: [id number] [employer]- All Rights Reserved Reading location - IP/workstation name: [email or web address]
== END ==
LOC: RAD 09:39
PROVIDERS: ATTEND Nurse Practitioner Family
DX: I10 Essential (primary) hypertension (principal); N64.4 Mastodynia
CPT/HCPCS: 76641; 77066; 93005; 93010; 93306

== ENCOUNTER 2018-01-30 08:13 | Day surgery (SDC) | payer MEDICARE, MEDICAID ==
[~2018-01-30 08:13] MED LIST changes: -DIPHENHYDRAMINE HCL 50 MG/ML VIAL ONE; -FENTANYL CITRATE INJ/PF 100 MCG/2 ML AMPUL ONE; -MIDAZOLAM 2 MG/2 ML INJ ONE
[2018-01-30] MEDS: MIDAZOLAM 2 MG/2 ML INJ ONE ×2 (08:26→08:31)
[2018-01-30] MEDS: FENTANYL CITRATE INJ/PF 100 MCG/2 ML AMPUL ONE ×3 (08:28→08:32)
--- NOTE | 2018-01-30 08:39 | Operative Report ---
Operative Report DATE OF SURGERY: 01/30/18 Operative Report: The risks benefits and alternatives of the procedure explained to the patient in detail and informed consent is obtained.A GIF Olympus video scope was inserted into the patient's mouth and hypopharynx, the esophagus is identified intubated and insufflated, the scope was then advanced through the esophagus stomach and duodenum, retroflexion maneuver is done the esophagus stomach and first and second portions of the duodenum examined PREOPERATIVE DIAGNOSIS: Dyspepsia, epigastric discomfort POSTOPERATIVE DIAGNOSIS: Linear erosions noted in the distal antrum. No active bleeding seen biopsies obtained to rule out for Helicobacter pylori OPERATION: EGD with biopsy SURGEON: MIHIR HART ANESTHESIA: LMAC - Conscious sedation medications administered. 4 mg of Versed given in 2 mg increments 75 mcg of fentanyl given in 25 mcg increments with conscious sedation monitoring time 30 minutes. TISSUE REMOVED OR ALTERED: As noted above. COMPLICATIONS: None. ESTIMATED BLOOD LOSS: None. INTRAOPERATIVE FINDINGS: As noted above. PROCEDURE: Patient tolerated the procedure well. No immediate postprocedure complications are noted. Patient discharged in good condition. Discharge date 01/30/2018. Discharge diet: Regular. Discharge activity: Regular. 2-3-week follow-up to discuss findings. Patient is instructed to call the office or proceed to the emergency room should have any further prescriptions. Wait on the pathology
[2018-01-30 10:47] VITALS: BP 112/57
== END 2018-01-30 09:50 | disposition home or self-care (01) ==
LOC: END 08:13
PROVIDERS: ATTEND Internal Medicine Gastroenterology
DX: K29.50 Unspecified chronic gastritis without bleeding (principal); I10 Essential (primary) hypertension; F17.210 Nicotine dependence, cigarettes, uncomplicated; G31.84 Mild cognitive impairment of uncertain or unknown etiology; E78.5 Hyperlipidemia, unspecified; D64.9 Anemia, unspecified; Z79.899 Other long term (current) drug therapy; Z88.8 Allergy status to other drugs, medicaments and biological substances; Z88.5 Allergy status to narcotic agent
CPT/HCPCS: 43239; 88342 ×2; 88305 ×2; J2250; J3010; J0171; J1610; J2310; J2405; J3490

== ENCOUNTER 2018-03-19 18:28 | Emergency (ER) | payer MEDICARE, MEDICAID ==
--- NOTE | 2018-03-19 18:41 | ER Document Report ---
ED General - General Stated Complaint: UNRESPONSIVE Time Seen by Provider: 03/19/18 18:38 Mode of Arrival: Medic Information source: Emergency Med Personnel Cannot obtain history due to: Intoxicated, Altered mental status TRAVEL OUTSIDE OF THE [place] IN LAST 30 DAYS: No - HPI Patient complains to provider of: unrespionsive Onset: Other - This patient presents after being found outside of her home on her stoop unresponsive with her special needs son calling for help. They believe that there was alcohol around per EMS. No other medical history related to this time. Rest of history is limited secondary to this patient's unresponsive status. - Related Data Allergies/Adverse Reactions: haloperidol [From Haldol] Allergy (Severe, Verified 01/30/18 08:13) Anaphylaxis haloperidol lactate [From Haldol] Allergy (Severe, Verified 01/30/18 08:13) Anaphylaxis codeine [Codeine] Adverse Reaction (Intermediate, Verified 01/30/18 08:13) DIZZY, PASSES OUT, GETS NAUSEATED duloxetine HCl [From Cymbalta] Adverse Reaction (Intermediate, Verified 01/30/18 08:13) URINE RETENTION olanzapine [From Zyprexa] Adverse Reaction (Mild, Verified 01/30/18 08:13) INCREASED HEARTRATE Past Medical History - General Information source: Emergency Med Personnel Cannot obtain history due to: Intoxicated, Uncooperative - Social History Smoking Status: Unknown if Ever Smoked Family History: Reviewed & Not Pertinent - Past Medical History Cardiac Medical History: Reports: Hx Hypertension Denies: Hx Coronary Artery Disease, Hx Heart Attack Pulmonary Medical History: Denies: Hx Asthma, Hx Bronchitis, Hx COPD, Hx Pneumonia Neurological Medical History: Denies: Hx Cerebrovascular Accident, Hx Seizures Renal/ Medical History: Denies: Hx Peritoneal Dialysis GI Medical History: Denies: Hx Hepatitis, Hx Hiatal Hernia, Hx Ulcer Musculoskeletal Medical History: Denies Hx Arthritis Psychiatric Medical History: Reports: Hx Anxiety, Hx Bipolar Disorder, Hx Depression, Hx Schizoaffective Disorder, Hx Schizophrenia - schizoeffective d/o Infectious Medical History: Denies: Hx Hepatitis Past Surgical History: Reports: Hx Cholecystectomy, Hx Gynecologic Surgery, Hx Oral Surgery - all teeth, Hx Orthopedic Surgery - rt thumb, Hx Tubal Ligation. Denies: Hx Hysterectomy, Hx Mastectomy, Hx Open Heart Surgery, Hx Pacemaker - Immunizations Immunizations up to date: Yes Hx Diphtheria, Pertussis, Tetanus Vaccination: Yes Review of Systems - Review of Systems -: Yes ROS unobtainable due to patient's medical condition Physical Exam - Vital signs Vitals: Resp Pulse Ox 24 H 100 03/19/18 18:36 03/19/18 18:36 - General General appearance: Unresponsive In distress: Mild - HEENT Head: Normocephalic Eyes: Normal Conjunctiva: Normal Cornea: Normal Nasal: Other - Nasal trumpet in place - Respiratory Respiratory status: No respiratory distress Chest status: Nontender Breath sounds: Normal Chest palpation: Normal - Cardiovascular Rhythm: Regular Heart sounds: Normal auscultation - Abdominal Inspection: Normal Distension: No distension Tenderness: Nontender - Back Back: Normal, Nontender - Extremities General upper extremity: Normal inspection, Nontender, Normal color, Normal ROM, Normal temperature General lower extremity: Normal inspection, Nontender, Normal color, Normal ROM, Normal temperature, Normal weight bearing. No: Joseph's sign - Neurological Neuro grossly intact: No Cognition: Confused, Inattentive Orientation: Disoriented to place [place] Coma Scale Eye Opening: None [place] Coma Scale Verbal: Confused Ayla Coma Scale Motor: Localizes to Pain [place] Coma Scale Total: 10 Speech: Dysarthria Motor strength normal: LUE, RUE, LLE, RLE Course - Re-evaluation Re-evalutation: 03/19/18 20:24 There is a 47-year-old woman who presented unresponsive from home after being found in the setting of empty alcohol bottles. She had a nasal trumpet placed prior to arrival was on a nonrebreather due to a desaturation while in route. Initially she responded to sternal rub, she would localize to pain and answer questions with simple yes and no. Looking through her medicine bag it is notable that she does have benzodiazepines prescribed to her, she has no narcotics prescribed to her, does have Tylenol and some antihypertensives as well. We will obtain acetaminophen level and aspirin level as well as chemistry count a chest x-ray. We will obtain an alcohol level as well as she may be intoxicated at this time. Alcohol level is elevated. With a brief period of observation in the emergency department this patient's mental status began to slightly improved. She became alert interactive and said that she was just drinking too much tonight. She denies any other ingestions recent illnesses or problems. She denies chest pain headache abdominal pain or other symptoms. We will plan for a brief period of observation ensured ability to tolerate p.o. and a normal neurologic examination. Patient ambulated in the emergency department without assistance. She was able to tolerate p.o. Because of trusted friend to try and assist her in getting home. - Vital Signs Vital signs: Temp Pulse Resp BP Pulse Ox 97.6 F 16 119/91 H 96 03/19/18 23:01 03/19/18 23:01 03/19/18 23:01 03/19/18 23:01 - Laboratory Result Diagrams: 03/19/18 18:34 03/19/18 18:34 Laboratory results interpreted by me: 03/19/18 03/19/18 18:34 18:34 WBC 13.4 H Hct 35.0 L Absolute Neutrophils 9.3 H Glucose 161 H Salicylates < 1.0 L Acetaminophen < 10 L Critical Care Note - Critical Care Note Total time excluding time spent on procedures (mins): 30 - This patient presented hypoxic and in extremis, aggressively sternal rub this patient, subsequently she was monitored aggressively her reassessed multiple times a nasal trumpet had to be placed she was on a nonrebreather for some period of nuris e quite extensive monitoring by nursing as well as reassessment. Discharge - Discharge Clinical Impression: Alcohol intoxication Qualifiers: Complication of substance-induced condition: with delirium Qualified Code(s): F10.921 - Alcohol use, unspecified with intoxication delirium Vomiting Qualifiers: Vomiting type: unspecified Vomiting Intractability: unspecified Nausea presence: unspecified Qualified Code(s): R11.10 - Vomiting, unspecified Condition: Good Disposition: HOME, SELF-CARE Instructions: Acute Alcohol Intoxication ([facility]) Additional Instructions: You were seen today in the emergency department after your found unresponsive outside of your house. You should avoid consuming alcohol, it appears that your problems today were related to drinking too much alcohol. Referrals: EFRAIN FRIEDMAN NP [Primary Care Provider] - Follow up as needed
[2018-03-19] MEDS ORDERED: NORMAL SALINE 1000 ML 1,000 ML IV ONE (18:46)
--- NOTE | 2018-03-19 18:48 | EKG REPORT ---
SEVERITY:- ABNORMAL ECG - SINUS TACHYCARDIA PROBABLE LVH WITH SECONDARY REPOL ABNRM : Confirmed by: Bennie Armas MD 19-Mar-2018 18:48:18
[2018-03-19 18:51] LABS: ABSOLUTE EOSINOPHILS # (AUTO) 0.2 10^3/uL (0.0-0.6); ABSOLUTE LYMPHOCYTES (AUTO) 3.1 10^3/uL (0.5-4.7); ABSOLUTE MONOCYTES (AUTO) 0.8 10^3/uL (0.1-1.4); ABSOLUTE NEUT (AUTO) 9.3 10^3/uL (1.7-8.2); BASOPHILS % (AUTO) 0.3 % (0-2); EOSINOPHILS % (AUTO) 1.4 % (0-6); LYMPHOCYTES % (AUTO) 23.2 % (13-45); MEAN CORPUSCULAR HEMOGLOBIN 28.9 pg (27.0-33.4); MEAN CORPUSCULAR HGB CONC 34.2 g/dL (32.0-36.0); MEAN CORPUSCULAR VOLUME 85 fl (80-97); MONOCYTES % (AUTO) 5.7 % (3-13); PLATELET COUNT 382 10^3/uL (150-450); RED BLOOD COUNT 4.15 10^6/uL (3.72-5.28); RED CELL DISTRIBUTION WIDTH 13.3 % (11.5-14.0); SEGMENTED NEUTROPHILS % (AUTO) 69.4 % (42-78); TOTAL CELLS COUNTED % (AUTO) 100 %; WHITE BLOOD COUNT 13.4 10^3/uL (4.0-10.5)
--- NOTE | 2018-03-19 19:11 | RADIOLOGY REPORT (SQ) ---
EXAM DESCRIPTION: CHEST SINGLE VIEW COMPLETED DATE/TIME: 03/19/2018 6:56 pm REASON FOR STUDY: concern for aspiration COMPARISON: 04/18/2013 EXAM PARAMETERS: NUMBER OF VIEWS: One view. TECHNIQUE: Single frontal radiographic view of the chest acquired. RADIATION DOSE: NA LIMITATIONS: Low lung volumes. FINDINGS: LUNGS AND PLEURA: No opacities, masses or pneumothorax. No pleural effusion. MEDIASTINUM AND HILAR STRUCTURES: No masses. Contour normal. HEART AND VASCULAR STRUCTURES: Heart normal in size. Normal vasculature. BONES: No acute findings. HARDWARE: None in the chest. OTHER: No other significant finding. IMPRESSION: Negative chest allowing for low lung volumes. TECHNICAL DOCUMENTATION: JOB ID: [id number] [employer]- All Rights Reserved Reading location - IP/workstation name: [email or web address]
[2018-03-19 19:20] LABS: ALANINE AMINOTRANSFERASE 24 U/L (9-52); ALBUMIN 4.2 g/dL (3.5-5.0); ALCOHOL 200 mg/dL (NONE DETECTED); ALKALINE PHOSPHATASE 79 U/L (38-126); ANION GAP 12 (5-19); ASPARTATE AMINO TRANSFERASE 21 U/L (14-36); BILIRUBIN,DIRECT 0.2 mg/dL (0.0-0.4); BILIRUBIN,TOTAL 0.2 mg/dL (0.2-1.3); BLOOD UREA NITROGEN 13 mg/dL (7-20); CALCIUM 8.9 mg/dL (8.4-10.2); CARBON DIOXIDE 25 mmol/L (22-30); CHLORIDE 101 mmol/L (98-107); GLUCOSE 161 mg/dL (75-110); LIPASE 55.6 U/L (23-300); POTASSIUM 3.8 mmol/L (3.6-5.0); TOTAL PROTEIN 7.1 g/dL (6.3-8.2)
[2018-03-19 19:22] LABS: ACETAMINOPHEN < 10 ug/mL (10-30); SALICYLATE < 1.0 mg/dL (2.0-20.0)
[2018-03-19] MEDS ORDERED: NALOXONE HCL INJ 2 MG/2 ML DISP.SYRIN IV ONE (19:30)
[2018-03-19 23:08] VITALS: BP 119/91
== END 2018-03-19 23:08 | disposition home or self-care (01) ==
LOC: ER 18:28
DX: F10.921 Alcohol use, unspecified with intoxication delirium (principal); R11.10 Vomiting, unspecified; Z88.5 Allergy status to narcotic agent; Z88.8 Allergy status to other drugs, medicaments and biological substances; I10 Essential (primary) hypertension; F25.0 Schizoaffective disorder, bipolar type; Y90.7 Blood alcohol level of 200-239 mg/100 ml
CPT/HCPCS: 93005; 99291; 96360; 96361; 36415; 80307 ×3; 83690; 85025; 80053; 71045; 93010; J7030

== ENCOUNTER → 2018-05-21 | Outpatient (CLI) | payer MEDICARE, MEDICAID ==
--- NOTE | 2018-05-21 15:16 | RADIOLOGY REPORT (SQ) ---
EXAM DESCRIPTION: KNEE LEFT 4 VIEWS COMPLETED DATE/TIME: 05/21/2018 3:05 pm REASON FOR STUDY: ARTHRALGIA OF LEFT KNEE M25.562 PAIN IN LEFT KNEE COMPARISON: None. NUMBER OF VIEWS: Four views. TECHNIQUE: AP, lateral, and both oblique radiographic images acquired of the left knee. LIMITATIONS: None. FINDINGS: MINERALIZATION: Normal. BONES: No acute fracture or dislocation. No worrisome bone lesions. JOINT: No effusion. SOFT TISSUES: No soft tissue swelling. No radio-opaque foreign body. OTHER: No other significant finding. IMPRESSION: NEGATIVE STUDY OF THE LEFT KNEE. NO RADIOGRAPHIC EVIDENCE OF ACUTE INJURY. TECHNICAL DOCUMENTATION: JOB ID: [id number] [employer]- All Rights Reserved Reading location - IP/workstation name: [email or web address]
== END ==
LOC: OD 14:50
PROVIDERS: ATTEND Nurse Practitioner Family
DX: M25.562 Pain in left knee (principal)

== ENCOUNTER → 2019-03-17 | Outpatient (CLI) | payer MEDICARE, MEDICAID ==
--- NOTE | 2019-03-17 15:45 | RADIOLOGY REPORT (SQ) ---
EXAM DESCRIPTION: KNEE LEFT 3 VIEWS COMPLETED DATE/TIME: 03/17/2019 3:24 pm REASON FOR STUDY: ACUTE PAIN OF LEFT KNEE M25.562 PAIN IN LEFT KNEE COMPARISON: None. NUMBER OF VIEWS: Three views. TECHNIQUE: AP, lateral, and sunrise patella radiographic images acquired of the left knee. LIMITATIONS: None. FINDINGS: MINERALIZATION: Normal. BONES: No acute fracture or dislocation. No worrisome bone lesions. Small superior patellar entheso phyte. JOINT: No effusion. SOFT TISSUES: No soft tissue swelling. No radio-opaque foreign body. OTHER: No other significant finding. IMPRESSION: NEGATIVE STUDY OF THE LEFT KNEE. NO RADIOGRAPHIC EVIDENCE OF ACUTE INJURY. TECHNICAL DOCUMENTATION: JOB ID: [id number] [employer]- All Rights Reserved Reading location - IP/workstation name: [email or web address]
== END ==
LOC: OD 15:11
PROVIDERS: ATTEND Nurse Practitioner Family
DX: M25.762 Osteophyte, left knee (principal); M25.562 Pain in left knee

== ENCOUNTER → 2019-04-16 | Outpatient (CLI) | payer MEDICARE, MEDICAID ==
--- NOTE | 2019-04-16 14:06 | RADIOLOGY REPORT (SQ) ---
EXAM DESCRIPTION: HIPS BILATERAL COMPLETED DATE/TIME: 04/16/2019 9:21 am REASON FOR STUDY: PAIN IN RIGHT HIP M25.551 PAIN IN RIGHT HIP COMPARISON: None. NUMBER OF VIEWS: Two views TECHNIQUE: AP pelvis and additional frog-leg view of both hips. LIMITATIONS: None. FINDINGS: MINERALIZATION: Normal. HIPS: No acute fracture or dislocation. No worrisome bone lesions. PELVIS AND SACRUM: No acute fracture or dislocation. No worrisome bone lesions. PUBIS AND ISCHIUM: No acute fracture. LOWER LUMBAR SPINE: Transitional vertebra. SOFT TISSUES: No findings. OTHER: No other significant finding. IMPRESSION: There is a transitional vertebra at the lumbosacral junction. The hips are normal. TECHNICAL DOCUMENTATION: JOB ID: [id number] [employer]- All Rights Reserved Reading location - IP/workstation name: [email or web address]
== END ==
LOC: RAD 08:39
PROVIDERS: ATTEND Nurse Practitioner Family
DX: M25.551 Pain in right hip (principal)
CPT/HCPCS: 73522

== ENCOUNTER → 2019-04-17 | Outpatient (CLI) | payer MEDICARE, MEDICAID ==
--- NOTE | 2019-04-17 12:24 | RADIOLOGY REPORT (SQ) ---
EXAM DESCRIPTION: U/S ABDOMEN LIMITED W/O DOP COMPLETED DATE/TIME: 04/17/2019 10:31 am REASON FOR STUDY: R10.11 RIGHT UPPER QUADRANT PAIN R10.11 RIGHT UPPER QUADRANT PAIN M47.817 SPONDY LS W/O MYELOPATHY OR RADICULOPATHY, LUMBOSACR COMPARISON: 05/17/2013 TECHNIQUE: Dynamic and static grayscale images acquired of the abdomen and recorded on PACS. Additio nal selected color Doppler and spectral images recorded. LIMITATIONS: None. FINDINGS: PANCREAS: No masses. Visualized pancreatic duct normal caliber. LIVER: No masses. Echotexture normal. LIVER VASCULATURE: Normal directional flow of the main portal vein and hepatic veins. GALLBLADDER: Surgically absent. ULTRASOUND-DETECTED AVILES'S SIGN: Not applicable. INTRAHEPATIC DUCTS AND COMMON DUCT: CBD and intrahepatic ducts normal caliber. No filling defects. INFERIOR VENA CAVA: Not imaged. AORTA: No aneurysm. There is atherosclerotic plaque. RIGHT KIDNEY: Normal size, 10.5 cm. Normal echogenicity. No solid or suspicious masses. No hydroneph rosis. No calcifications. PERITONEAL AND RIGHT PLEURAL SPACE: No ascites or effusions. OTHER: No other significant findings. IMPRESSION: NORMAL RIGHT UPPER QUADRANT ULTRASOUND. TECHNICAL DOCUMENTATION: JOB ID: [id number] [employer]- All Rights Reserved Reading location - IP/workstation name: [email or web address]
--- NOTE | 2019-04-17 12:36 | RADIOLOGY REPORT (SQ) ---
EXAM DESCRIPTION: MRI LUMBAR SPINE WITHOUT COMPLETED DATE/TIME: 04/17/2019 11:21 am REASON FOR STUDY: M47.817 SPONDYLS W/O MYELOPATHY OR RADICULOPATHY, LUMBOSACR REGION R10.11 RIGHT U PPER QUADRANT PAIN M47.817 SPONDYLS W/O MYELOPATHY OR RADICULOPATHY, LUMBOSACR COMPARISON: None. TECHNIQUE: Sagittal and Axial imaging includes T1, T2, STIR and gradient echo sequences. Coronal T2/ HASTE imaging. LIMITATIONS: None. FINDINGS: VISUALIZED UPPER ABDOMEN: Limited evaluation. No acute or suspicious findings suggested. SEGMENTATION: No transitional anatomy. The lowest well-developed disc space is labeled L5-S1. ALIGNMENT: Anatomic. VERTEBRAE: Intact. BONE MARROW: Normal. No marrow replacement or reactive changes. DISC SIGNAL: There is mild disc narrowing at L4-5 with decreased T2 signal intensity. POSTERIOR ELEMENTS: Generally intact. No pars defect evident. HARDWARE: None in the spine. CORD AND CONUS: Normal in size and signal intensity. Conus at the T12-L1 level. SOFT TISSUES: No aortic aneurysm seen. No bulky retroperitoneal adenopathy or mass. No paraspinal mas s or fluid. L1-L2: No significant spinal stenosis or exit foraminal stenosis. L2-L3: No significant spinal stenosis or exit foraminal stenosis. L3-L4: No significant spinal stenosis or exit foraminal stenosis. L4-L5: No significant spinal stenosis or exit foraminal stenosis. L5-S1: No significant spinal stenosis or exit foraminal stenosis. LOWER THORACIC: Incompletely imaged. No stenosis seen. SACRUM: Visualized upper sacrum intact. OTHER: No other significant findings. IMPRESSION: The study is essentially normal. There is mild disc narrowing at L4-5 with evidence of mild disc desiccation. TECHNICAL DOCUMENTATION: JOB ID: [id number] [employer]- All Rights Reserved Reading location - IP/workstation name: [email or web address]
== END ==
LOC: RAD 09:54
PROVIDERS: ATTEND Nurse Practitioner Family
DX: R10.11 Right upper quadrant pain (principal); M47.817 Spondylosis without myelopathy or radiculopathy, lumbosacral region
CPT/HCPCS: 72148; 76705

== ENCOUNTER → 2019-05-07 | Outpatient (CLI) | payer MEDICARE, MEDICAID ==
--- NOTE | 2019-05-07 13:07 | RADIOLOGY REPORT (SQ) ---
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 TECHNIQUE: Sagittal and Axial imaging includes T1, T2, STIR and gradient echo sequences. LIMITATIONS: None. FINDINGS: LOCALIZER: No worrisome findings. ALIGNMENT: Normal. VERTEBRAE: Intact. BONE MARROW: Normal. No marrow replacement or reactive changes. HARDWARE: None in the spine. CORD: Normal in size and signal intensity. SOFT TISSUES: No soft tissue masses. THORACIC DISCS T1-T12: Tiny central disc bulge at T7-T 8. This is smaller. Otherwise unremarkable. No significant spinal stenosis or exit foraminal stenosis. LOWER CERVICAL: Incompletely imaged. No significant spinal stenosis or exit foraminal stenosis. UPPER LUMBAR: Incompletely imaged. No significant spinal stenosis or exit foraminal stenosis. OTHER: No other significant finding. IMPRESSION: TINY CENTRAL DISC BULGE AT T7-T 8 IS SMALLER. NO OTHER SIGNIFICANT FINDINGS. TECHNICAL DOCUMENTATION: JOB ID: [id number] 2010 [employer]- All Rights Reserved Reading location - IP/workstation name: [email or web address]
== END ==
LOC: RAD 12:03
PROVIDERS: ATTEND Nurse Practitioner Family
DX: M51.24 Other intervertebral disc displacement, thoracic region (principal)
CPT/HCPCS: 72146

== ENCOUNTER → 2019-07-14 | Outpatient (CLI) | payer MEDICARE, MEDICAID ==
[2019-07-14 11:02] LABS: ALBUMIN 4.2 g/dL (3.5-5.0); ALKALINE PHOSPHATASE 72 U/L (38-126); ANION GAP 7 (5-19); ASPARTATE AMINO TRANSFERASE 23 U/L (14-36); BILIRUBIN,TOTAL 0.6 mg/dL (0.2-1.3); BLOOD UREA NITROGEN 19 mg/dL (7-20); CALCIUM 9.7 mg/dL (8.4-10.2); CARBON DIOXIDE 28 mmol/L (22-30); CHLORIDE 102 mmol/L (98-107); GLUCOSE 88 mg/dL (75-110); PHOSPHORUS 3.3 mg/dL (2.5-4.5); POTASSIUM 4.4 mmol/L (3.6-5.0); TOTAL PROTEIN 7.3 g/dL (6.3-8.2)
--- NOTE | 2019-07-14 11:42 | EKG REPORT ---
SEVERITY:- BORDERLINE ECG - SINUS RHYTHM PROBABLE LEFT ATRIAL ABNORMALITY : Confirmed by: Bennie Armas MD 14-Jul-2019 11:42:16
== END ==
LOC: OD 09:53
PROVIDERS: ATTEND Nurse Practitioner Family
DX: R07.89 Other chest pain (principal); I10 Essential (primary) hypertension
CPT/HCPCS: 36415; 80053; 83735; 84100; 84484; 93005; 93010

== ENCOUNTER → 2019-07-31 | Outpatient (CLI) | payer MEDICARE, MEDICAID ==
[2019-07-31 16:50] LABS: ABSOLUTE EOSINOPHILS # (AUTO) 0.1 10^3/uL (0.0-0.6); ABSOLUTE LYMPHOCYTES (AUTO) 2.8 10^3/uL (0.5-4.7); ABSOLUTE MONOCYTES (AUTO) 0.7 10^3/uL (0.1-1.4); ABSOLUTE NEUT (AUTO) 7.2 10^3/uL (1.7-8.2); BASOPHILS % (AUTO) 0.2 % (0-2); EOSINOPHILS % (AUTO) 1.1 % (0-6); HEMATOCRIT 36.8 % (36.0-47.0); HEMOGLOBIN 12.3 g/dL (12.0-15.5); LYMPHOCYTES % (AUTO) 25.8 % (13-45); MEAN CORPUSCULAR HEMOGLOBIN 28.5 pg (27.0-33.4); MEAN CORPUSCULAR HGB CONC 33.5 g/dL (32.0-36.0); MEAN CORPUSCULAR VOLUME 85 fl (80-97); MONOCYTES % (AUTO) 6.1 % (3-13); PLATELET COUNT 342 10^3/uL (150-450); RED BLOOD COUNT 4.32 10^6/uL (3.72-5.28); RED CELL DISTRIBUTION WIDTH 15.4 % (11.5-14.0); SEGMENTED NEUTROPHILS % (AUTO) 66.8 % (42-78); TOTAL CELLS COUNTED % (AUTO) 100 %; WHITE BLOOD COUNT 10.7 10^3/uL (4.0-10.5)
[2019-07-31 17:09] LABS: ANION GAP 9 (5-19); BLOOD UREA NITROGEN 17 mg/dL (7-20); CALCIUM 9.4 mg/dL (8.4-10.2); CARBON DIOXIDE 30 mmol/L (22-30); CHLORIDE 98 mmol/L (98-107); GLUCOSE 99 mg/dL (75-110); POTASSIUM 4.5 mmol/L (3.6-5.0)
== END ==
LOC: OD 15:29
PROVIDERS: ATTEND Nurse Practitioner Family
DX: E55.9 Vitamin D deficiency, unspecified (principal); I10 Essential (primary) hypertension; R53.83 Other fatigue
CPT/HCPCS: 36415; 80048; 82306; 84443; 85025

== ENCOUNTER → 2019-09-03 | Outpatient (CLI) | payer MEDICARE, MEDICAID ==
--- NOTE | 2019-09-03 14:11 | RADIOLOGY REPORT (SQ) ---
EXAM DESCRIPTION: VENOUS UNILATERAL LOWER IMAGES COMPLETED DATE/TIME: 09/03/2019 1:46 pm REASON FOR STUDY: RLE PAIN M79.604 PAIN IN RIGHT LEG COMPARISON: None. TECHNIQUE: Dynamic and static higgins scale and color images acquired of the right leg venous system. S elected spectral images acquired with additional compression and augmentation maneuvers. The contrala teral common femoral vein and saphenofemoral junction were also imaged. Images stored on PACS. LIMITATIONS: None. FINDINGS: COMMON FEMORAL: Normal phasicity, compression and augmentation. No visualized echogenic ma terial on higgins scale. No defects on color images. FEMORAL: Normal compression and augmentation. No visualized echogenic material on higgins scale. No defe cts on color images. POPLITEAL: Normal compression, augmentation. No visualized echogenic material on higgins scale. No defec ts on color images. CALF VESSELS: Normal compression, augmentation. No visualized echogenic material on higgins scale. No de fects on color images. GSV and SSV: Normal compression, augmentation. No visualized echogenic material on higgins scale. No def ects on color images. ANY DEEP VENOUS INSUFFICIENCY: Not evaluated. ANY EVIDENCE OF POPLITEAL CYST: No. OTHER: No other significant finding. CONTRALATERAL COMMON FEMORAL VEIN AND SAPHENOFEMORAL JUNCTION: Normal phasicity, compression and augmentation. No visualized echogenic material on higgins scale. No de fects on color images. IMPRESSION: NO EVIDENCE OF DVT OR SVT IN THE RIGHT LEG. TECHNICAL DOCUMENTATION: JOB ID: [id number] 2010 [employer]- All Rights Reserved Reading location - IP/workstation name: [email or web address]
== END ==
LOC: SP 12:38
PROVIDERS: ATTEND Physician Assistant
DX: M79.604 Pain in right leg (principal)
CPT/HCPCS: 93971

== ENCOUNTER → 2019-11-19 | Outpatient (CLI) | payer MEDICARE, MEDICAID ==
[2019-11-19 09:45] LABS: HEMATOCRIT 34.6 % (36.0-47.0); HEMOGLOBIN 11.7 g/dL (12.0-15.5); MEAN CORPUSCULAR HEMOGLOBIN 28.9 pg (27.0-33.4); MEAN CORPUSCULAR HGB CONC 33.9 g/dL (32.0-36.0); MEAN CORPUSCULAR VOLUME 85 fl (80-97); PLATELET COUNT 278 10^3/uL (150-450); RED BLOOD COUNT 4.05 10^6/uL (3.72-5.28); RED CELL DISTRIBUTION WIDTH 14.3 % (11.5-14.0); WHITE BLOOD COUNT 6.9 10^3/uL (4.0-10.5)
[2019-11-19 10:09] LABS: ALBUMIN 3.7 g/dL (3.5-5.0); ALKALINE PHOSPHATASE 67 U/L (38-126); ANION GAP 5 (5-19); ASPARTATE AMINO TRANSFERASE 24 U/L (14-36); BILIRUBIN,DIRECT 0.3 mg/dL (0.0-0.4); BILIRUBIN,TOTAL 0.6 mg/dL (0.2-1.3); BLOOD UREA NITROGEN 20 mg/dL (7-20); CALCIUM 8.9 mg/dL (8.4-10.2); CARBON DIOXIDE 29 mmol/L (22-30); CHLORIDE 107 mmol/L (98-107); CHOLESTEROL 139.33 mg/dL (0-200); GLUCOSE 101 mg/dL (75-110); POTASSIUM 4.5 mmol/L (3.6-5.0); TOTAL PROTEIN 6.4 g/dL (6.3-8.2); TRIGLYCERIDES 77 mg/dL (<150)
[2019-11-19 10:20] LABS: DIRECT LDL 78 mg/dL (<100)
== END ==
LOC: OD 08:30
PROVIDERS: ATTEND Nurse Practitioner Family
DX: E78.2 Mixed hyperlipidemia (principal); I10 Essential (primary) hypertension; Z91.018 Allergy to other foods
CPT/HCPCS: 36415; 80053; 80061; 85027; 86003